=== PATIENT | male | born 1965 | race Caucasian/White ===

== ENCOUNTER 2020-01-27 16:26 | Emergency (ER) | payer SELFPAY ==
--- NOTE | ~2020-01-27 | XR_ITS ---
EXAMINATION: XR chest 2V DATE: 01/27/2020 17:16 INDICATION: Cough and fever TECHNIQUE: PA and lateral views of the chest are obtained. COMPARISON: None available FINDINGS: There is minimal airspace opacity of the right lower lobe. There is no pleural effusion or pneumothorax. The cardiomediastinal silhouette is normal. There is mild thoracic spondylosis. A heale d left rib fracture is noted. IMPRESSION: 1. Minimal airspace opacity of the right lower lobe which could be infectious or inflammatory. Recomm end followup radiographs in 10-14 days after appropriate therapy to evaluate for improvement/resoluti on. Reviewed, dictated and finalized at location A. IMPRESSION: 1. Minimal airspace opacity of the right lower lobe which could be infectious o r inflammatory. Recommend followup radiographs in 10-14 days after appropriate therapy to evaluate for improvement/resolution.
[2020-01-27 16:31] VITALS: BP 146/79; PULSE 100; RESP 24; TEMP 38.4; O2SAT 97
--- NOTE | 2020-01-27 17:07 | ED.GENADULT ---
HPI - General Adult General Chief complaint: Upper Respiratory Infection Stated complaint: cough/congestion History of Present Illness HPI narrative: Patient is a 54-year-old morbidly obese male presents to the urgent care via POV for evaluation of flulike symptoms that began approximately 4 days ago. He reports nonproductive cough, shortness of breath, chest congestion, subjective fever, nasal congestion, rhinorrhea, myalgias, and fatigue. Symptoms better with OTC decongestants. Symptoms worsen with too much walking . Patient does not have a PCP. Last seen by Dr. Perea years and years ago . Patient denies history of major medical illnesses. Patient denies known exposure to sick contacts. He states when he travels frequently but when he does travel he only travels within the [facility]. Denies history of vaping, COPD, bronchitis, asthma, and pneumonia. Denies current/past tobacco use. Pertinent negatives: sweats, chills, change in appetite, skin color changes, headache, dizziness, lymphadenopathy, sinus problems, ear pain/drainage, chest pain, heart murmurs, heart palpitations, wheezing, cyanosis, hemoptysis, hoarseness, orthopnea, pleuritic pain, nausea, vomiting, diarrhea, and myalgias. Related Data Allergies Allergy/AdvReac Type Severity Reaction Status Date / Time steroid Allergy Rash Uncoded 01/27/20 16:41 Review of Systems Review of Systems: All systems reviewed & are unremarkable except as noted in HPI and below PMFSH Comments I have reviewed and agree with the patient's past medical, surgical, social, and family hx as documented by the RN. There is no relevant family history pertinent to the presenting complaint. Exam Narrative: Exam Narrative: GENERAL: Well-appearing, well-nourished, and in no acute distress. Patient is unkept. HEAD: Normocephalic, atraumatic. No sinus tenderness or facial swelling appreciated. EYES: PERRLA and EOMI. No evidence of erythema, swelling, or drainage. ENT: Bilateral external ears and ear canals normal. Bilateral TMs are normal.No TM perforation. Nares clear, no rhinorrhea or epistaxis. Bilateral turbinates without erythema/ swelling. Mucous membranes moist and pink. Uvula is midline without erythema and swelling. No evidence of petechial rash, cobblestoning, lesions, ulcers, erythema, swelling, exudates, peritonsillar abscess, tenting, or drooling. Breath odor and voice normal. NECK: Supple. No Lymphadenopathy or nuchal rigidity appreciated. CHEST: Bilateral lung gray are clear to auscultation. Mild SOB. No respiratory distress. Mild wet cough appreciated upon examination. No evidence of pleuritic cp upon examination. HEART: Regular rate and rhythm. No murmur, gallop, or rub heard. EXTREMITIES: Normal range of motion. No edema. SKIN: Warm, dry, no rash. NEURO: No focal deficits. Alert and oriented x3. Course Course Emergency Course: SOB vastly improved post duo neb treatment. Vital Signs Vital signs: Vital Signs Temperature 101.1 F H 01/27/20 16:31 Pulse Rate 100 01/27/20 16:31 Respiratory Rate 24 H 01/27/20 16:31 Blood Pressure 146/79 H 01/27/20 16:31 Pulse Oximetry 97 01/27/20 16:31 Temperature 101.1 F H 01/27/20 16:31 Pulse Rate 100 01/27/20 16:31 Respiratory Rate 24 H 01/27/20 16:31 Blood Pressure 146/79 H 01/27/20 16:31 Pulse Oximetry 97 01/27/20 16:31 Medical Decision Making Medical Records Medical records reviewed: Yes I reviewed the patient's medical records. Vital Signs Vital Signs: Vital Signs Temperature 101.1 F H 01/27/20 16:31 Pulse Rate 100 01/27/20 16:31 Respiratory Rate 24 H 01/27/20 16:31 Blood Pressure 146/79 H 01/27/20 16:31 Pulse Oximetry 97 01/27/20 16:31 Temperature 101.1 F H 01/27/20 16:31 Pulse Rate 100 01/27/20 16:31 Respiratory Rate 24 H 01/27/20 16:31 Blood Pressure 146/79 H 01/27/20 16:31 Pulse Oximetry 97 01/27/20 16:31 Lab Data Lab results re
[2020-01-27 17:30] VITALS: PULSE 100; RESP 24; O2SAT 97
[2020-01-27 17:58] VITALS: PULSE 98; RESP 24; O2SAT 98
== END 2020-01-27 18:05 | disposition home or self-care (01) ==
PROVIDERS: Emergency Provider Nurse Practitioner Family
DX: R05 Cough (principal); R06.02 Shortness of breath
CPT/HCPCS: 71046; 94640; 99213; G0463

== ENCOUNTER 2020-07-14 08:29 | Observation (INO) | payer SELFPAY ==
[2020-07-14] VITALS (10 sets, daily range): BP systolic 124–193; BP diastolic 66–102; PULSE 75–102; RESP 16–26; TEMP 36.2–36.8; O2SAT 96–100; BMI 43.3
--- NOTE | ~2020-07-14 | XR_ITS ---
EXAMINATION: XR chest 2V DATE: 07/14/2020 09:12 INDICATION: Left arm pain. Bilateral lower extremity weakness. TECHNIQUE: Frontal and lateral views of the chest were obtained. COMPARISON: Chest 2 views 01/27/2020, chest CT 11/24/2011 FINDINGS: The chest demonstrates clear lungs without pneumonia, pleural effusion, or pneumothorax. Th e heart size is normal. IMPRESSION: 1. No acute cardiopulmonary disease. Reviewed, dictated and finalized at location A.
--- NOTE | ~2020-07-14 | CT_ITS ---
EXAMINATION: CT brain wo con DATE: 07/14/2020 10:21 INDICATION: Arm and leg weakness post fall one week prior. TECHNIQUE: Computed tomography (CT) of the head was performed without intravenous contrast. Sagittal and coronal reconstructions were performed. The mA was adjusted according to patient size. Iterative reconstruction technique was employed. The dose-length product was 681.00 mGy-cm. COMPARISON: None FINDINGS: No fracture. No acute intracranial hemorrhage, acute infarction or abnormal extra axial fluid collect ion. Ventricles are normal and symmetric. No mass/mass effect. The orbits, paranasal sinuses and mast oid air cells are normal. IMPRESSION: 1. No fracture or acute intracranial process. Reviewed, dictated and finalized at location B.
--- NOTE | ~2020-07-14 | MR_ITS ---
EXAMINATION: MR cervical spine wo con DATE: 07/15/2020 13:50 INDICATION: Left upper extremity weakness. TECHNIQUE: Magnetic resonance imaging (MRI) of the cervical spine was performed without intravenous c ontrast. Sequences included sagittal T2-weighted FSE, sagittal STIR FSE, sagittal T1-weighted FSE, ax ial MERGE, and axial T2-weighted FSE. COMPARISON: Cervical spine radiographs 11/07/2009 FINDINGS: There is kyphosis of upper cervical spine. There is 3 degrees levocurvature of cervical spi ne. Vertebral body heights are normal. There is mildly decreased disc height at C4-C5, C5-C6, and C6- C7. The spinal cord signal intensity is normal. The following disc levels are specifically discussed: C2-C3: The disc does not extend beyond the endplate margin. There is no uncovertebral joint osteoarth ritis. There is severe right facet joint osteoarthritis. There is ankylosis of left facet joint with moderate hypertrophy. There is no neural foraminal stenosis. There is no central canal stenosis. C3-C4: The disc is bulging. There is mild left uncovertebral joint osteoarthritis. There is moderate right and mild right facet joint osteoarthritis. There is mild bilateral neural foraminal stenosis. T here is mild central canal stenosis with ventral indentation of spinal cord. C4-C5: The disc is bulging. There is mild bilateral uncovertebral joint osteoarthritis. There is mild left facet joint osteoarthritis. There is mild bilateral neural foraminal stenosis. There is mild ce ntral canal stenosis with ventral indentation of spinal cord. C5-C6: The disc is bulging. There is moderate bilateral uncovertebral joint osteoarthritis. There is no facet joint osteoarthritis. There is mild bilateral neural foraminal stenosis. There is mild centr al canal stenosis. C6-C7: The disc is bulging. There is moderate right and severe left uncovertebral joint osteoarthriti s. There is no facet joint osteoarthritis. There is mild right and moderate left neural foraminal stacie nosis. There is mild central canal stenosis. C7-T1: The disc does not extend beyond the endplate margin. There is no uncovertebral joint osteoarth ritis. There is moderate bilateral facet joint osteoarthritis. There is mild bilateral neural foramin al stenosis. There is no central canal stenosis. IMPRESSION: 1. Moderate cervical spondylosis including moderate left neural foraminal stenosis at C6-C7. Reviewed, dictated and finalized at location A. IMPRESSION: 1. Moderate cervical spondylosis including moderate left neural foraminal steno sis at C6-C7.
--- NOTE | ~2020-07-14 | MR_ITS ---
EXAMINATION: MR brain/brain stem wo/w con DATE: 07/15/2020 13:50 INDICATION: Left upper extremity weakness. TECHNIQUE: Magnetic resonance imaging (MRI) of the brain and brainstem was performed without and with 20 mL MultiHance intravenous contrast. Sequences included sagittal and axial T1-weighted FSE, axial diffusion-weighted FS EPI, axial T2*-weighted GRE, axial T2-weighted FLAIR Propeller, and axial T2-we ighted Propeller. Postcontrast sequences included axial and coronal T1-weighted FSE. Apparent diffusi on coefficient (ADC) maps were created. COMPARISON: Head CT 07/14/2020 FINDINGS: There is no intracranial hemorrhage, acute infarction, or abnormal intracranial mass lesion . The ventricles are normal in size. The orbits are normal. There is mild mucosal thickening in right maxillary sinus. The mastoid air cells are normal. IMPRESSION: 1. Normal brain. Reviewed, dictated and finalized at location A. IMPRESSION: 1. Normal brain.
--- NOTE | ~2020-07-14 | MR_ITS ---
EXAMINATION: MR shoulder LT wo con DATE: 07/15/2020 13:50 INDICATION: Limited left shoulder motion. Weakness. TECHNIQUE: Magnetic resonance imaging (MRI) of the left shoulder was performed without intravenous co ntrast. Sequences included axial PD-weighted FS FSE, coronal oblique PD-weighted FS FSE, coronal obli que T2-weighted FS FSE, sagittal PD-weighted FS FSE, and sagittal T1-weighted SE. COMPARISON: None. FINDINGS: Coracoacromial arch: The acromion undersurface is curved in morphology (type II). The coracoacromial ligament is normal. M oderate acromioclavicular osteoarthritis with prominent subarticular cystic change at the anterior as pect of the lateral head of the clavicle. Rotator cuff: The supraspinatus, infraspinatus and teres minor tendons are normal. The subscapularis tendon is norm al. There is severe fatty atrophy of the teres minor muscle belly. No evident abnormal masses, fluid collections or other impinging lesions identified at the quadrilateral space along the course of the axillary nerve. The remaining musculature of the shoulder girdle appears normal. Biceps tendon, glenoid labrum and glenohumeral cartilage: Long head of the biceps tendon is normal. Linear increased signal extending peripherally into the sub stance of the superior glenoid labrum consistent with small SLAP tear at the 11:30-12:30 position. Gl enohumeral cartilage is normal. Fluid: Physiologic amount of fluid in the glenohumeral joint and biceps tendon sheath. No loose osteochondra l bodies. No abnormally increased fluid signal in the subacromial/subdeltoid bursa to suggest bursiti s. Bones: Bone alignment is normal. No fracture or pathologic marrow replacing process. IMPRESSION: 1. Small SLAP tear at the superior glenoid labrum. 2. Moderate acromioclavicular osteoarthritis. 3. Nonspecific severe fatty atrophy of the left teres minor muscle belly which is of indeterminate et iology with no evident impinging lesions along the course of the axillary nerve. Reviewed, dictated and finalized at location B. IMPRESSION: 1. Small SLAP tear at the superior glenoid labrum. 2. Moderate acromioclavicular osteoarthritis. 3. Nonspecific severe fatty atrophy of the left teres minor muscle belly which is of indeterminate etiology with no evident impinging lesions along the course of the axillary nerve.
--- NOTE | 2020-07-14 08:40 | ECG_ITS ---
Measurements Intervals [place] Rate: 94 P: 42 SD: 169 QRS: 30 QRSD: 88 T: 66 QT: 328 QTc: 411 Interpretive Statements SINUS RHYTHM BORDERLINE T WAVE ABNORMALITY- HIGH LATERAL LEADS BASELINE ARTIFACT- I, II, AVR, AVL, AVF, V1-V6 BORDERLINE ECG Electronically Signed On 07-14-2020 9:35:04 CDT by Gustavo Kc D.O.
--- NOTE | 2020-07-14 08:44 | PC.NURSE ---
pt informed of need for ua, given urinal to attempt sample.
[2020-07-14 09:04] LABS: Basophils Absolute Auto 0.1 K/mm3 (0.0-0.1); Basophils Percent Auto 0.7 % (0.2-1.2); Eosinophils Absolute Auto 0.3 K/mm3 (0-0.3); Eosinophils Percent Auto 2.8 % (0-4.4); Hematocrit 46.7 % (42.0-52.0); Hemoglobin 15.8 g/dL (14.0-18.0); Immature Granulocyte Absolute 0.05 K/mm3 (0.00-0.031); Immature Granulocyte Percent A 0.4 % (0-0.5); Lymphocytes Absolute Auto 2.98 K/mm3 (0.9-3.2); Mean Corpuscular HGB Conc 33.8 g/dl (32-36); Mean Corpuscular Hemoglobin 30.7 pg (26-34); Mean Corpuscular Volume 90.9 fl (80-100); Mean Platelet Volume 8.5 fl (7.4-10.4); Monocytes Absolute Auto 1.2 K/mm3 (0.1-0.6); Monocytes Percent Auto 10.8 % (2.6-8.5); Neutrophils Absolute Auto 6.8 K/mm3 (1.3-6.7); Neutrophils Percent Auto 59.3 % (45.5-73.1); Platelet Count Result 448 k/mm3 (150-375); Red Blood Count 5.14 M/mm3 (4.6-6.20); Red Cell Distribution Width 12.8 % (11.5-14.5); White Blood Count 11.5 K/mm3 (4.5-10.0)
--- NOTE | 2020-07-14 09:07 | PC.NURSE ---
pt to ct at this time in stretcher.
[2020-07-14 09:10] LABS: Alanine Aminotransferase 38 U/L (4-50); Albumin Level 4.5 g/dL (3.5-5.1); Alkaline Phosphatase 102 U/L (38-126); Anion Gap 9 mmol/L (8-16); Aspartate Amino Transferase 37 U/L (17-59); Bilirubin,Total 0.6 mg/dL (0.2-1.3); Blood Urea Nitrogen 14 mg/dL (9-20); Calcium 9.6 mg/dL (8.4-10.2); Carbon Dioxide 27 mmol/L (22-30); Chloride 102 mmol/L (98-107); Estimated CRCL calculation 123 ml/min; Estimated Glomerular Filt Rate > 60; Glucose 120 mg/dL (75-110); Sodium 138 mmol/L (137-145)
[2020-07-14 09:10] LABS: Add Urine Microscopic? NO; Appearance Urine Clear (Clear); Bilirubin Urine Negative (Negative); Blood Urine Negative (Negative); Color Urine Yellow (Yellow); Glucose Urine UA Negative (Negative); Ketones Urine Negative (Negative); Leukocyte Esterase Ur Negative LEU/UL (Negative); Nitrate Urine Negative (Negative); Protein Urine Negative (Negative); Urobilinogen Urine Negative mg/dL (<2.0)
[2020-07-14 09:27] LABS: INR 0.9; Prothrombin Time 12.1 Seconds (11.1-14.7)
[2020-07-14 09:28] LABS: Partial Thromboplastin Time 26.3 SECONDS (22.3-36.8)
[2020-07-14 09:55] LABS: Troponin I < 0.012 ng/mL (0.000-0.034)
--- NOTE | 2020-07-14 10:39 | PC.NURSE ---
pt back from xray, wound noted to L scapula, draining purulent and bloody fluid. toña farah.
--- NOTE | 2020-07-14 11:16 | ED.GENADULT ---
HPI - General Adult General Chief complaint: Weakness Stated complaint: fatigue/left arm weakness onset 2.5 months Time Seen by Provider: 07/14/20 09:08 Source: patient Mode of arrival: ambulatory Limitations: no limitations History of Present Illness HPI narrative: 54 years old white male, morbidly obese presents with weakness of the left upper extremity 3 to 4 weeks ago. Patient is right-handed. Patient denies any pain in the left upper extremity. Patient also denies any fever, chills, nausea, vomiting, diarrhea, constipation, headache or any other focal weakness. Patient also denies any neck pain or recent trauma.. Patient does not have family physician Related Data Allergies Allergy/AdvReac Type Severity Reaction Status Date / Time steroid Allergy Rash Uncoded 01/27/20 16:41 Review of Systems Review of Systems: Narrative: CONSTITUTIONAL: Denies fever, chills, or sweats. EYES: Denies visual changes, redness, or discharge. ENT: Denies rhinorrhea, congestion, sore throat, or otalgia. CARDIOVASCULAR: Denies chest pain, palpitations, or edema. RESPIRATORY: Denies cough or dyspnea. GASTROINTESTINAL: Denies abdominal pain, nausea, vomiting, or diarrhea. GENITOURINARY: Denies dysuria or hematuria. SKIN: Denies rash or itching. MUSCULOSKELETAL: Denies back pain, joint pain, or myalgia. NEUROLOGIC: Denies headache, numbness,. Complaining of weakness left upper extremity PSYCHIATRIC: Denies anxiety or depression. PMFSH Social History Social History (Updated 07/14/20 @ 11:19 by Zenaida Clemons MD) Smoking status: Never smoker Second hand tobacco smoke exposure: No Alcohol intake: never Gender identity (if verbalized by the patient): Male Exam Narrative: Exam Narrative: General appearance: Well-developed, well-nourished, morbidly obese, not in any pain or distress Skin: Normal color, left upper back showed large abscess leaking purulent discharge. Diffusely tender, surrounded by erythema Head: Normocephalic, nontraumatic Eyes: Clear conjunctiva ENT: Oropharynx normal, ears normal, nose normal Neck: Supple, nontender Chest and respiratory: Airway patent, no respiratory distress, no accessory muscle use Heart: Regular rate/rhythm Abdomen: Soft, nontender, no organomegaly, quiet bowel sounds Vascular: Normal peripheral pulses, normal capillary refill. Musculoskeletal: Limited range of motion of left upper extremity because of weakness Neurologic: Alert and oriented ?3, weakness left upper extremity 3 out of 5 Course Course Emergency Course: Stable Consultations Consultation #1: Dr. Tirado Admit patient for further evaluation Date: 07/14/20 Time: 12:49 Consultation #2: Dr. Martino Date: 07/14/20 Time: 12:51 Vital Signs Vital signs: Vital Signs Temperature 36.3 C L 07/14/20 08:37 Pulse Rate 92 07/14/20 08:37 Respiratory Rate 18 07/14/20 08:37 Blood Pressure 193/102 H 07/14/20 08:37 Pulse Oximetry 99 07/14/20 08:37 Temperature 36.3 C L 07/14/20 08:37 Pulse Rate 91 07/14/20 12:32 Respiratory Rate 26 H 07/14/20 12:32 Blood Pressure 147/76 H 07/14/20 12:32 Pulse Oximetry 99 07/14/20 12:32 Procedures Abscess I/D back: Date of Incision: 07/14/20 Time of Incision: 12:47 Side (if applicable): left Local Anesthetic: lidocaine 1% Amount of anesthesia used (mL): 6 Technique: incised with #11 blade Amount of fluid expressed (mL): 40 Irrigation: Yes Packing used?: iodoform I&D Results: Pus and Blood Complications: pain and bleeding Abcess I&D Additional Comments: Culture was obtained, patient tolerated the procedure well Medical De
--- NOTE | 2020-07-14 12:31 | PC.NURSE ---
toña levy at bedside for incision and drain.
--- NOTE | 2020-07-14 13:57 | PC.NURSE ---
PER STAFF [facility], PT NOT TO BE SENT TO THE FLOOR UNTIL THEY CONTACT US DUE TO DOWN TIME.
--- NOTE | 2020-07-14 14:25 | ADMGEN ---
This patient, Luis A Crow, was admitted to 2 Medical Room 255-. Patient/family oriented to hospital policies and general routines including ID bracelet, bed and alarms, visiting hours, pain management, procedures, bathroom and other care routines, personal items, smoking policy, room service/diet, and visiting hours. Valuables list has been completed. Information on how to activate the Rapid Response Team has been discussed. Patient/Family are encouraged to report perceived risks to care and to ask questions if they do not understand what they are told or what they should do.
--- NOTE | 2020-07-14 19:00 | PM.IMHP ---
H&P: HPI History of Present Illness Date/Time: 07/14/20 19:00 Chief complaint: Left upper extremity weakness/l upper back abscess Narrative: Luis A Crow is a 54 year old male who tells me that he has been having problems with his left shoulder for many months. The patient delivers papers on a paper route. He throws the papers with his left arm and stated that he gradually noticed that his left arm was gradually getting weaker. His no complaints of discomfort but has limited motion to the left arm he can only get his left arm to about 90?. He has not had any fall or injury to that left arm. He has not been to primary care doctor for follow-up treatment. The patient stated that he has had a left knee injury in the past and felt like he might have messed up his tendon or something in that left knee but he braced it for a few months that is getting better. He has also had problems with his right knee in the past were he had surgery on and had a splint on it. The patient has no slurred speech are left leg weakness. The patient stated that he cut a what a little bit because he has knee pain. No history of any strokes. Head CT was read as no fracture acute intracranial process. Chest x-ray no acute cardiopulmonary disease. Patient was also found to have a abscess to his left chest area just under his left axillary area. A incision and drainage was performed. Wound culture was sent. Date of service is 07/14/2020 Review of Systems Review of Systems: All systems reviewed & are unremarkable except as noted in HPI and below Constitutional: Constitutional: Reports as per HPI and Reports no additional constitutional complaints Eyes: Eyes: Reports as per HPI and Reports no additional eye complaints ENT: Reports system reviewed and no additional complaints, except as documented and Reports Normal hearing present Cardiovascular: Cardiovascular: Reports no additional cardiovascular complaints Respiratory: Respiratory: Reports no additional respiratory complaints and Reports no additional respiratory complaints Gastrointestinal: Gastrointestinal: Reports as per HPI and Reports no additional gastrointestinal complaints Musculoskeletal: Musculoskeletal: Reports no additional musculoskeletal complaints Integumentary/Breasts: Skin/Breast: Reports system reviewed and no additional complaints, except as docu and Reports as per HPI Neurologic: Reports system reviewed and no additional complaints, except as documented, Reports as per HPI and Reports Normal hearing present Psychiatric: Psychiatric: Reports no additional psychiatric complaints and Reports as per HPI Endocrine: Endocrine: Reports no additional endocrine complaints Hematologic/Lymphatic: Hematologic/Lymphatic: Reports no additional hematologic/lymphatic complaints Allergic/Immunologic: Allergic/Immunologic: Reports no additional allergic/immunologic complaints [facility] Surgical History Surgical History (Updated 07/14/20 @ 19:11 by Luz Messina NP) History of appendectomy S/P arthroscopic surgery of right knee Family History Family History Father BPH (benign prostatic hyperplasia) Lymph node cancer Hypercholesteremia Mother Diabetes mellitus Hip replacement planned Sibling Colon cancer Sibling No problems noted. Sibling No problems noted. Social History Social History (Updated 07/14/20 @ 19:12 by Luz Messina NP) Social History: the patient lives with his father. He has a paper I will that he does every day. The patient does not have a durable power district attorney for healthcare. The patient is single and has no children. He desires to be a full code. Patient denies ever using any tobacco products. No marijuana or illicit drugs. Smoking status: Never smoker Second hand tobacco smoke exposure: Yes Alcohol intake: never Substance use: never Living arrangements: [facility]
[2020-07-14] MEDS: ACETAMINOPHEN 325 MG TABLET 650 MG PO (23:04)
[2020-07-15 04:00] VITALS: BP 138/61; PULSE 79; RESP 20; TEMP 36.4; O2SAT 97
[2020-07-15 05:48] LABS: Basophils Percent Auto 0.6 % (0.2-1.2); Eosinophils Absolute Auto 0.3 K/mm3 (0-0.3); Eosinophils Percent Auto 4.2 % (0-4.4); Hematocrit 43.5 % (42.0-52.0); Hemoglobin 14.9 g/dL (14.0-18.0); Immature Granulocyte Absolute 0.02 K/mm3 (0.00-0.031); Immature Granulocyte Percent A 0.3 % (0-0.5); Lymphocytes Absolute Auto 1.99 K/mm3 (0.9-3.2); Lymphocytes Percent Auto 28.7 % (18.3-44.2); Mean Corpuscular HGB Conc 34.3 g/dl (32-36); Mean Corpuscular Volume 90.4 fl (80-100); Mean Platelet Volume 8.5 fl (7.4-10.4); Monocytes Absolute Auto 0.9 K/mm3 (0.1-0.6); Monocytes Percent Auto 13.1 % (2.6-8.5); Neutrophils Absolute Auto 3.7 K/mm3 (1.3-6.7); Neutrophils Percent Auto 53.1 % (45.5-73.1); Platelet Count Result 336 k/mm3 (150-375); Red Blood Count 4.81 M/mm3 (4.6-6.20); Red Cell Distribution Width 12.7 % (11.5-14.5); White Blood Count 6.9 K/mm3 (4.5-10.0)
[2020-07-15 06:07] LABS: Alanine Aminotransferase 32 U/L (4-50); Albumin Level 3.8 g/dL (3.5-5.1); Alkaline Phosphatase 81 U/L (38-126); Anion Gap 7 mmol/L (8-16); Aspartate Amino Transferase 32 U/L (17-59); Bilirubin,Total 0.5 mg/dL (0.2-1.3); Blood Urea Nitrogen 13 mg/dL (9-20); Carbon Dioxide 27 mmol/L (22-30); Chloride 102 mmol/L (98-107); Estimated CRCL calculation 137 ml/min; Estimated Glomerular Filt Rate > 60; Glucose 119 mg/dL (75-110); Potassium 4.1 mmol/L (3.4-5.0); Sodium 136 mmol/L (137-145)
--- NOTE | 2020-07-15 08:00 | PC.NURSE ---
Patient states he is fidgety and will have a hard time lying still in the MRI machine. Called Dr. Martino and discussed same. Orders received for IV Ativan x 1 prior to MRI today.
--- NOTE | 2020-07-15 08:07 | PM.CNGS ---
Assessment and Plan Assessment and plan (1) Abscess: Code(s): L02.91 - Cutaneous abscess, unspecified Status: Acute Assessment and Plan: okay to discharge today. Daily showers and dry gauze dressing to back wound. See me in 1-2 weeks in the office. No need for oral antibiotics. History of Present Illness Consult details Consult date: 07/15/20 Reason for consult: other ( Back abscess) Narrative: patient is a 54-year-old man who came to the emergency room for history of left upper extremity weakness. While there he was noted to have a back abscess which was incised and drained in the emergency room. I have been consulted for management of the abscess. Packing was placed in the emergency room. The incision and drainage was done yesterday. Preliminary report on the abscess shows polymicrobial infection. Review of Systems Review of Systems: All systems reviewed & are unremarkable except as noted in HPI and below Constitutional: Constitutional: Denies body ache(s), Denies chills and Denies fever(s) Comments: Patient thought he had scratched his back. Was not aware there was an infection there. Neurologic: Reports as per HPI and Reports Sensory deficit (Neuro) [facility] Surgical History Surgical History History of appendectomy S/P arthroscopic surgery of right knee Family History Family History Father BPH (benign prostatic hyperplasia) Lymph node cancer Hypercholesteremia Mother Diabetes mellitus Hip replacement planned Sibling Colon cancer Sibling No problems noted. Sibling No problems noted. Social History Social History Social History: the patient lives with his father. He has a paper I will that he does every day. The patient does not have a durable power attorney lawyer for healthcare. The patient is single and has no children. He desires to be a full code. Patient denies ever using any tobacco products. No marijuana or illicit drugs. Smoking status: Never smoker Second hand tobacco smoke exposure: Yes Alcohol intake: never Substance use: never Living arrangements: with family Occupation/Education: occupation Gender identity (if verbalized by the patient): Male Spiritual care concerns: No Meds Home Medications and Allergies Home Medications Medication Instructions Recorded Confirmed Type No Home Medications 07/14/20 07/14/20 History Allergies Allergy/AdvReac Type Severity Reaction Status Date / Time steroid Allergy Rash Uncoded 01/27/20 16:41 Vital Signs Vital Signs - 24 hr 07/14/20 08:37 07/14/20 08:41 07/14/20 09:23 Temperature 36.3 C L Pulse Rate 92 97 87 Respiratory Rate 18 26 H 26 H Blood Pressure 193/102 H 161/95 H 140/91 H Pulse Oximetry 99 98 96 07/14/20 10:00 07/14/20 11:01 07/14/20 11:24 Temperature Pulse Rate 86 83 83 Respiratory Rate 21 H 22 H 22 H Blood Pressure 126/72 124/76 124/76 Pulse Oximetry 97 97 99 07/14/20 12:32 07/14/20 13:56 07/14/20 14:30 Temperature 36.8 C Pulse Rate 91 75 80 Respiratory Rate 26 H 17 16 Blood Pressure 147/76 H 147/76 H 151/81 H Pulse Oximetry 99 100 98 07/14/20 20:00 07/15/20 04:00 Temperature 36.2 C L 36.4 C Pulse Rate 102 H 79 Respiratory Rate 18 20 Blood Pressure 136/66 138/61 Pulse Oximetry 96 97 Exam Const: General: comfortable, no acute distress, alert and awake Nutritional Appearance: obese Orientation/consciousness: patient oriented x3 Limitations: no limitations HENMT: Head: normocephalic and atraumatic Mouth: Yes Normal oral and palatal mucosa present Eyes: Conjunctivae: conjunctivae normal Pupils: Equal, round and reactive pupils present EOM: EOMs intact bilaterally Neck: Neck: normal visual inspection, no lymphadenopathy and nontender Resp: Effort & Ins
[2020-07-15] MEDS: ASPIRIN 81 MG CHEWABLE TABLET PO (10:26)
--- NOTE | 2020-07-15 11:05 | WPDNEURCNPN ---
Assessment and Plan Assessment and plan (1) LUE weakness: Code(s): R29.898 - Other symptoms and signs involving the musculoskeletal system Status: Acute (2) Abscess: Code(s): L02.91 - Cutaneous abscess, unspecified Status: Acute Additional Plan his back abscess was incised and drained in the emergency room for the follow-up Dr. 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 Has had left knee injury in the past along with the right knee as well where he has undergone surgery Review of Systems Review of Systems: All systems reviewed & are unremarkable except as noted in HPI and below PMFSH Surgical History Surgical History History of appendectomy S/P arthroscopic surgery of right knee Family History Family History Father BPH (benign prostatic hyperplasia) Lymph node cancer Hypercholesteremia Mother Diabetes mellitus Hip replacement planned Sibling Colon cancer Sibling No problems noted. Sibling No problems noted. Social History Social History Social History: the patient lives with his father. He has a paper I will that he does every day. The patient does not have a durable power deputy prosecuting attorney for healthcare. The patient is single and has no children. He desires to be a full code. Patient denies ever using any tobacco products. No marijuana or illicit drugs. Smoking status: Never smoker Second hand tobacco smoke exposure: Yes Alcohol intake: never Substance use: never Living arrangements: with family Occupation/Education: occupation Gender identity (if verbalized by the patient): Male Spiritual care concerns: No Meds Home Medications and Allergies Home Medications Medication Instructions Recorded Confirmed Type No Home Medications 07/14/20 07/14/20 History Allergies Allergy/AdvReac Type Severity Reaction Status Date / Time steroid Allergy Rash Uncoded 01/27/20 16:41 Vital Signs Vital Signs - 24 hr 07/14/20 11:24 07/14/20 12:32 07/14/20 13:56 Temperature Pulse Rate 83 91 75 Respiratory Rate 22 H 26 H 17 Blood Pressure 124/76 147/76 H 147/76 H Pulse Oximetry 99 99 100 07/14/20 14:30 07/14/20 20:00 07/15/20 04:00 Temperature 36.8 C 36.2 C L 36.4 C Pulse Rate 80 102 H 79 Respiratory Rate 16 18 20 Blood Pressure 151/81 H 136/66 138/61 Pulse Oximetry 98 96 97 Exam Narrative: Exam Narrative: examination revealed him to be awake alert cooperative in no obvious acute distress but interested in going to to home as soon as possible head normocephalic with no cranial bruit ear nose throat examination normal neck supple with no cervical bruit no thyromegaly no lymphadenopathy heart regular with no murmur lungs clear to auscultation with no evidence of rhonchi or crepitation normal bowel sounds with no organomegaly back in the spina pelvic exam is not reporting of non significant skin normal neurological he is awake alert oriented x3. His speech nor dysphasic no dysarthric not dysphonic. Pupils round regular feels the vision full extraocular most full face symmetrical tongue midline uvula midline motor examination reveals normal strength in both upper and lower extremities proximally and distally except did not difficulties in lifting the left upper extremity above the 90? mentally his normal with no evide
--- NOTE | 2020-07-15 12:00 | PC.NURSE ---
To MRI via wheelchair with transporter.
[2020-07-15 14:00] VITALS: BP 140/85; PULSE 86; RESP 16; TEMP 36.7; O2SAT 98
--- NOTE | 2020-07-15 16:04 | PM.DS ---
DS: Admitting Diagnosis Admitting Diagnosis Admitting Diagnosis: Left upper extremity weakness/l upper back abscess DS: Discharge Diagnosis Discharge Diagnosis (1) LUE weakness: Code(s): R29.898 - Other symptoms and signs involving the musculoskeletal system Status: Acute Assessment and Plan: the patient stated that this weakness came on over time. 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 He cannot lift his left arm greater than 90?. The ER physician felt that the patient needed to be admitted and worked up for stroke. However he does not have any weakness his left lower extremity. So will get a MRI of the neck and the left shoulder. This could possibly be a rotator cuff injury. (2) Abscess: Code(s): L02.91 - Cutaneous abscess, unspecified Status: Acute Assessment and Plan: Under left axillary area. The area was drain per ED physician and cultures were sent. I did start the patient on Ancef. I consulted surgery for further evaluation. There may not be any further need for any further treatment other than antibiotics and waiting for the cultures. DS: Summary Hospital Course Reason for hospitalization: Chief complaint: Left upper extremity weakness/l upper back abscess Narrative: Luis A Crow is a 54 year old male who tells me that he has been having problems with his left shoulder for many months. The patient delivers papers on a paper route. He throws the papers with his left arm and stated that he gradually noticed that his left arm was gradually getting weaker. His no complaints of discomfort but has limited motion to the left arm he can only get his left arm to about 90?. He has not had any fall or injury to that left arm. He has not been to primary care doctor for follow-up treatment. The patient stated that he has had a left knee injury in the past and felt like he might have messed up his tendon or something in that left knee but he braced it for a few months that is getting better. He has also had problems with his right knee in the past were he had surgery on and had a splint on it. The patient has no slurred speech are left leg weakness. The patient stated that he cut a what a little bit because he has knee pain. No history of any strokes. Head CT was read as no fracture acute intracranial process. Chest x-ray no acute cardiopulmonary disease. Patient was also found to have a abscess to his left chest area just under his left axillary area. A incision and drainage was performed. Wound culture was sent. Date of service is 07/14/2020 Hospital Course: the patient stated that this weakness came on over time. 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 He cannot lift his left arm greater than 90?. The ER physician felt that the patient needed to be admitted and worked up for stroke. However he does not have any weakness his left lower extremity. So will get a MRI of the neck and the left shoulder. This could possibly be a rotator cuff injury., patient had MRI of the brain which was negative for acute injury, patient had a MRI of the cervical spine showed spinal stenosis, patient had MRI of the shoulder showed Small SLAP tear at the superior glenoid labrum. patient was to be discharged home and will follow-up with orthopedics outpatient patient is clinically stable, patient was seen by surgery service evaluated abscess on the back, does not need further surgical intervention and does not need antibiotic can be discharged home follow-up as outpatient in the clinic Status at Discharge Functional status at discharge: independent ambulation Overall status at discharge: patient is back to baseline Time Spent with Patient Time attestation: Total time spent providing and/or coordinating discharge services: Patient was seen and examined at the time of the discharge Condition at discharge is stable Code status: Full code. Time spent preparing discharge summary, discharge medications, discussing discharge p
== END 2020-07-15 16:35 | disposition home or self-care (01) ==
LOC: ANHED 13:12 → ANH2MED 13:14
PROVIDERS: Nurse Practitioner; Admitting Provider Family Medicine; Emergency Provider Emergency Medicine; Visit Provider Family Medicine
DX: L02.412 Cutaneous abscess of left axilla (principal); M62.81 Muscle weakness (generalized); E66.01 Morbid (severe) obesity due to excess calories; Z68.41 Body mass index [BMI] 40.0-44.9, adult
CPT/HCPCS: 10061; 36415; 70450; 70553; 71046; 72141; 73221; 80053; 81003; 84484; 85025; 85610; 85730; 87070; 87205; 93005; 96365; 96366; 96375; 99285; A9270; A9577; G0378; G0379; J0690; J2060

== ENCOUNTER 2020-10-23 06:25 | Emergency (ER) | payer MEDICAID, SELFPAY ==
--- NOTE | ~2020-10-23 | XR_ITS ---
EXAMINATION: XR ankle LT min 3V DATE: 10/23/2020 07:34 INDICATION: Left ankle pain and swelling TECHNIQUE: Anteroposterior, oblique, mortise, and lateral views of the left ankle were obtained. COMPARISON: None. FINDINGS: Alignment is normal. No fracture. Mild osteoarthritis at the tibiotalar and calcaneocuboid articulat ions. No erosions or periosteal reaction. Small Achilles and plantar calcaneal spurs. Diffuse soft ti ssue swelling about the ankle. No evident ankle joint effusion. There is however suggestion of possib le talonavicular joint effusion. IMPRESSION: 1. 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 No acute osseous abnormality. Reviewed, dictated and finalized at location A. GER ASSET MANAGEMENT IMPRESSION: 1. 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 No acute osseous abnorma lity.
--- NOTE | ~2020-10-23 | US_ITS ---
EXAMINATION: US venous doppler [facility] DATE: 10/23/2020 08:05 INDICATION: Left lower limb swelling. TECHNIQUE: Grayscale ultrasound images without and with compression and Doppler ultrasound images of the bilateral lower extremity veins were obtained. COMPARISON: None. FINDINGS: The visualized portions of right common femoral vein, profunda (deep) femoral vein, femoral vein, pop liteal vein, peroneal veins, posterior tibial veins, and greater saphenous vein outflow are patent. The visualized portions of left common femoral vein, profunda femoral vein, femoral vein, popliteal v ein, peroneal veins, posterior tibial veins, and greater saphenous vein outflow are patent. IMPRESSION: 1. No deep venous thrombosis. Reviewed, dictated and finalized at location B. ATOLOGY SALES REPRESENTATIVE
[2020-10-23 06:23] VITALS: BP 155/81; PULSE 102; RESP 19; TEMP 36.8; O2SAT 96
--- NOTE | 2020-10-23 07:08 | ECG_ITS ---
Measurements Intervals [place] Rate: 86 P: 58 MT: 154 QRS: 45 QRSD: 94 T: 70 QT: 349 QTc: 418 Interpretive Statements SINUS RHYTHM NONSPECIFIC T-WAVE ABNORMALITY- INF/HIGH LAT LEADS BASELINE ARTIFACT- I, II, III, AVL, AVF, V3, V6 BORDERLINE ECG Electronically Signed On 10-23-2020 7:37:50 METAL WIRE COATING OPERATOR by Gustavo Kc D.O.
--- NOTE | 2020-10-23 07:11 | ED.GENADULT ---
HPI - General Adult General Chief complaint: Extremity Injury, Lower Stated complaint: L LOWER LEG PAIN Time Seen by Provider: 10/23/20 07:01 Source: RN notes reviewed History of Present Illness HPI narrative: Patient presents to emergency department from home for leg swelling. Patient states he has had swelling in the bilateral legs over the past 4 days. He states is worse on the left than the right. He states that he did fall approximately a week ago but does not believe he had injured himself at that time. He denies any fevers or chills chest pain shortness of breath abdominal pain or any other symptoms he does state he has some mild aching around the left ankle but denies any known trauma or injury he denies any history of CHF Related Data Allergies Allergy/AdvReac Type Severity Reaction Status Date / Time steroid Allergy Rash Uncoded 10/23/20 08:01 Review of Systems Review of Systems: Narrative: Gen.: Denies fevers or chills ENT: Denies congestion Respiratory: Denies shortness of breath or cough CV: Denies chest pain or palpitations GI: Denies abdominal pain nausea, emesis or diarrhea Musculoskeletal: Denies back pain or muscle pain or lower extremity edema Neuro: Denies numbness, tingling, weakness or focal weakness Skin: Denies rash Except as documented, all other systems reviewed and negative [facility] Surgical History Surgical History History of appendectomy S/P arthroscopic surgery of right knee Family History Family History Father BPH (benign prostatic hyperplasia) Lymph node cancer Hypercholesteremia Mother Diabetes mellitus Hip replacement planned Sibling Colon cancer Sibling No problems noted. Sibling No problems noted. Social History Social History Social History: the patient lives with his father. He has a paper I will that he does every day. The patient does not have a durable power banking attorney for healthcare. The patient is single and has no children. He desires to be a full code. Patient denies ever using any tobacco products. No marijuana or illicit drugs. Smoking status: Never smoker Second hand tobacco smoke exposure: Yes Alcohol intake: never Substance use: never Gender identity (if verbalized by the patient): Male Spiritual care concerns: No Exam Narrative: Exam Narrative: APPEARANCE: No acute distress, nontoxic, resting in bed EYES: EOMI HEENT: Normocephalic, atraumatic, OMM RESPIRATORY: No respiratory distress Clear to auscultation bilaterally with no rhonchi wheezing or rales. CARDIOVASCULAR: Regular rate and rhythm without murmurs rubs or gallops. ABDOMINAL: Obese soft, nontender, nondistended, no rebound or guarding MUSCULOSKELETAl: Moves all extremities. No clubbing, cyanosis 2+ edema the right lower extremity 3+ edema the left lower extremity Alfonoz dorsalis pedis pulse 2+ neurovascular intact NEURO: Awake and alert. Following commands, speech normal, no focal deficits SKIN:: Warm, dry. No rashes lesions or abrasions PSYCHIATRIC: Normal affect/mood, Course Course Emergency Course: Upon further discussion with the patient he states that they have been having to do work in his bedroom and his bed and that he has been sleeping upright in his car for the past several days. Discussed with patient dependent edema we discussed use of compression stockings and patient states he will try to sleep on his friend's couch Discussed with patient results of workup and diagnosis. Discussed need for follow-up with primary care, proper use of medication, and reasons to return to the emergency department. Patient understands and agrees to current treatment plan Vital Signs Vital signs: Vital Signs Temperature 98.3 F 10/23/20 06:23 Pulse Rate 102 H 10/23/20 06:23 Respiratory Rate 19 12
[2020-10-23 07:28] LABS: Basophils Percent Auto 0.4 % (0.2-1.2); Eosinophils Absolute Auto 0.3 K/mm3 (0-0.3); Eosinophils Percent Auto 2.8 % (0-4.4); Hematocrit 43.6 % (42.0-52.0); Hemoglobin 14.6 g/dL (14.0-18.0); Immature Granulocyte Absolute 0.04 K/mm3 (0.00-0.031); Immature Granulocyte Percent A 0.4 % (0-0.5); Lymphocytes Absolute Auto 1.37 K/mm3 (0.9-3.2); Lymphocytes Percent Auto 13.8 % (18.3-44.2); Mean Corpuscular HGB Conc 33.5 g/dl (32-36); Mean Corpuscular Hemoglobin 31.2 pg (26-34); Mean Corpuscular Volume 93.2 fl (80-100); Mean Platelet Volume 8.6 fl (7.4-10.4); Monocytes Absolute Auto 1.1 K/mm3 (0.1-0.6); Monocytes Percent Auto 10.8 % (2.6-8.5); Neutrophils Absolute Auto 7.1 K/mm3 (1.3-6.7); Neutrophils Percent Auto 71.8 % (45.5-73.1); Platelet Count Result 289 k/mm3 (150-375); Red Blood Count 4.68 M/mm3 (4.6-6.20); Red Cell Distribution Width 13.1 % (11.5-14.5); White Blood Count 9.9 K/mm3 (4.5-10.0)
[2020-10-23 07:41] LABS: Alanine Aminotransferase 35 U/L (4-50); Albumin Level 3.7 g/dL (3.5-5.1); Alkaline Phosphatase 84 U/L (38-126); Anion Gap 5 mmol/L (8-16); Aspartate Amino Transferase 36 U/L (17-59); Bilirubin,Total 0.5 mg/dL (0.2-1.3); Blood Urea Nitrogen 17 mg/dL (9-20); Calcium 9.4 mg/dL (8.4-10.2); Carbon Dioxide 34 mmol/L (22-30); Chloride 100 mmol/L (98-107); Estimated CRCL calculation 140 ml/min; Estimated Glomerular Filt Rate > 60; Glucose 131 mg/dL (75-110); Potassium 3.7 mmol/L (3.4-5.0); Sodium 139 mmol/L (137-145)
[2020-10-23 07:43] LABS: INR 0.9; Partial Thromboplastin Time 23.9 SECONDS (22.3-36.8); Prothrombin Time 12.9 Seconds (11.1-14.7)
[2020-10-23 07:54] LABS: NT Pro B Type Natriuretic Pept < 11 PG/ML (5-100); Troponin I < 0.012 ng/mL (0.000-0.034)
[2020-10-23 10:03] VITALS: BP 143/85; PULSE 85; RESP 18; O2SAT 95
== END 2020-10-23 10:06 | disposition home or self-care (01) ==
PROVIDERS: Emergency Provider Emergency Medicine
DX: R60.0 Localized edema (principal); M19.072 Primary osteoarthritis, left ankle and foot; R94.31 Abnormal electrocardiogram [ECG] [EKG]
CPT/HCPCS: 36415; 73610; 80053; 83880; 84484; 85025; 85610; 85730; 93005; 93970; 99284

== ENCOUNTER 2020-11-01 14:26 | Observation (INO) | payer MEDICAID, SELFPAY ==
[2020-11-01] VITALS (11 sets, daily range): BP systolic 134–187; BP diastolic 67–110; PULSE 94–111; RESP 20–36; TEMP 36.8–36.9; O2SAT 95–98; BMI 42.6; BMI 42.7
--- NOTE | ~2020-11-01 | CT_ITS ---
EXAMINATION: CTA chest PE protocol EXAM DATE: 11/01/2020 19:01 INDICATION: Shortness of breath. TECHNIQUE: Spiral CTA of the chest (pulmonary arteries) was performed with 100 cc Omnipaque 350 intr avenous contrast injection. Images were acquired during the pulmonary arterial phase. Coronal maxi mum intensity projection 3D-reconstructions were created by the technologist on dedicated workstation . Axial, coronal and sagittal reformatted images were reviewed. The dose-length product (DLP) for t his examination was 923.69 mGy-cm. The exposure was tailored according to patient size (auto mA exp osure control), and iterative reconstruction (ASIR) was used as additional dose reduction technique. There is no prior study for comparison. FINDINGS: The main, central pulmonary arteries are dilated which can indicate elevated pulmonary ashley rial pressure, pulmonary arterial hypertension. There are no pulmonary emboli in the 1st or 2nd orde r (central and main) pulmonary arteries. There is loss of attenuation in the segmental pulmonary ashley farrukh due to respiratory motion, more distal pulmonary arteries not well evaluated. No thoracic aort ic dissection. Linear right lower lobe subsegmental atelectasis. The lungs are otherwise clear. Th ere are no pleural or pericardial effusions. Tracheobronchial tree is patent. There is no mediast inal, hilar or axillary lymphadenopathy. There is no pneumothorax. Heart normal in size. No lazaro dence of coronary arterial calcification. Upper abdomen is unremarkable. There is thoracic spondyl osis without osteoblastic or osteolytic lesions identified. IMPRESSION: 1. No central pulmonary emboli. Can't confidently evaluate interlobar, segmental pulmonary arteries. Consider attempting perfusion scan. 2. Pulmonary arterial hypertension. Reviewed, dictated and finalized at location A. TUTOR IMPRESSION: 1. No central pulmonary emboli. Can't confidently evaluate interlobar, segment al pulmonary arteries. Consider attempting perfusion scan. 2. Pulmonary arterial hypertension.
--- NOTE | ~2020-11-01 | XR_ITS ---
EXAMINATION: XR chest 1V portable EXAM DATE: 11/01/2020 15:06 INDICATION: Weakness. TECHNIQUE: Portable AP frontal chest x-ray was obtained. Comparison is made to prior examination from 07/14/2020. FINDINGS: Some underpenetration of this portable exam. No confluent consolidation, pneumothorax or pl eural effusion suspected. The cardiomediastinal silhouette is prominent but magnified on this AP tech nique. There are no osseous abnormalities identified. IMPRESSION: Some limitations but no confluent consolidation. Reviewed, dictated and finalized at location A. OL ADMISSIONS REPRESENTATIVE
--- NOTE | ~2020-11-01 | XR_ITS ---
EXAMINATION: XR foot LT min 3V DATE: 11/03/2020 12:39 INDICATION: Left foot pain. TECHNIQUE: 4 views of left foot were obtained. COMPARISON: None. FINDINGS: Bone alignment is normal. No fracture. There is mild osteoarthritis of talonavicular joint and some of the interphalangeal joints. There are enthesophytes at the posterior and plantar aspects of calcaneal tuberosity. IMPRESSION: 1. Mild polyarticular osteoarthritis. Reviewed, dictated and finalized at location A. EM DEVELOPMENT ENGINEER
--- NOTE | ~2020-11-01 | XR_ITS ---
EXAMINATION: XR ankle LT min 3V DATE: 11/03/2020 12:38 INDICATION: Left ankle pain and swelling. TECHNIQUE: 4 views of left ankle were obtained. COMPARISON: None. FINDINGS: Bone alignment is normal. No fracture. There is an osteochondral lesion of medial talar dom e. There is mild osteoarthritis of talonavicular joint. There are enthesophytes at the posterior and plantar aspects of calcaneal tuberosity. Ankle soft tissue swelling is noted. IMPRESSION: 1. Polyarticular osteoarthritis. Reviewed, dictated and finalized at location A. ETOLOGY PROFESSOR
--- NOTE | 2020-11-01 14:28 | ECG_ITS ---
Measurements Intervals [place] Rate: 110 P: 50 NE: 149 QRS: 31 QRSD: 108 T: 60 QT: 386 QTc: 524 Interpretive Statements SINUS TACHYCARDIA EARLY PRECORDIAL R/S TRANSITION BORDERLINE ST-T WAVE ABNORMALITY- DIFFUSE LEADS BASELINE ARTIFACT- I, II, III, AVR, AVL, AVF, V1 ABNORMAL ECG Electronically Signed On 11-01-2020 15:32:50 TURBINE MECHANIC by Gustavo Kc D.O.
--- NOTE | 2020-11-01 14:46 | ED.GENADULT ---
HPI - General Adult General Chief complaint: Weakness Stated complaint: weakness Time Seen by Provider: 11/01/20 14:35 Source: patient History of Present Illness HPI narrative: Patient is a 54 y/o male complaining of severe generalized weakness for several months. He states that he is living in a truck for last several weeks. He has trouble getting up walking due to weakness. There is no alleviating or exacerbating factor. He has no chest pain or SOB. He has chronic leg swelling. Related Data Allergies Allergy/AdvReac Type Severity Reaction Status Date / Time steroid Allergy Rash Uncoded 11/01/20 14:29 Review of Systems Constitutional: Constitutional: Denies chills, Denies fever(s), Denies headache(s) and Reports weakness Eyes: Eyes: Denies blurry vision ENT: Denies headache(s) and Denies neck pain Cardiovascular: Cardiovascular: Denies chest pain, Reports leg edema and Reports dyspnea Respiratory: Respiratory: Denies cough and Reports dyspnea Gastrointestinal: Gastrointestinal: Denies abdominal pain, Denies diarrhea, Denies nausea and Denies vomiting Genitourinary: Genitourinary: Denies hematuria and Denies dysuria Musculoskeletal: Musculoskeletal: Denies back pain and Denies neck pain Neurologic: Denies headache(s) and Reports weakness PMFSH Surgical History Surgical History History of appendectomy S/P arthroscopic surgery of right knee Family History Family History Father BPH (benign prostatic hyperplasia) Lymph node cancer Hypercholesteremia Mother Diabetes mellitus Hip replacement planned Sibling Colon cancer Sibling No problems noted. Sibling No problems noted. Social History Social History Social History: the patient lives with his father. He has a paper I will that he does every day. The patient does not have a durable power ip technology transactions attorney for healthcare. The patient is single and has no children. He desires to be a full code. Patient denies ever using any tobacco products. No marijuana or illicit drugs. Smoking status: Never smoker Second hand tobacco smoke exposure: Yes Alcohol intake: never Substance use: never Gender identity (if verbalized by the patient): Male Spiritual care concerns: No Course Consultations Consultation #1: Discussed with CIVIL PREPAREDNESS OFFICER Luz, who agrees to admit. Date: 11/01/20 Time: 16:42 Vital Signs Vital signs: Vital Signs Temperature 36.8 C 11/01/20 14:23 Pulse Rate 110 H 11/01/20 14:23 Respiratory Rate 36 H 11/01/20 14:23 Blood Pressure 186/87 H 11/01/20 14:23 Pulse Oximetry 98 11/01/20 14:23 Temperature 36.8 C 11/01/20 14:23 Pulse Rate 100 11/01/20 16:34 Respiratory Rate 30 H 11/01/20 16:34 Blood Pressure 183/74 H 11/01/20 16:34 Pulse Oximetry 98 11/01/20 16:34 Medical Decision Making Vital Signs Vital Signs: Vital Signs Temperature 36.8 C 11/01/20 14:23 Pulse Rate 110 H 11/01/20 14:23 Respiratory Rate 36 H 11/01/20 14:23 Blood Pressure 186/87 H 11/01/20 14:23 Pulse Oximetry 98 11/01/20 14:23 Temperature 36.8 C 11/01/20 14:23 Pulse Rate 100 11/01/20 16:34 Respiratory Rate 30 H 11/01/20 16:34 Blood Pressure 183/74 H 11/01/20 16:34 Pulse Oximetry 98 11/01/20 16:34 Lab Data Result diagrams: 11/01/20 14:35 11/01/20 14:35 Labs: Lab Results 11/01/20 11/01/20 11/01/20 Range/Units 14:35 14:35 15:04 WBC 11.4 H (4.5-10.0) K/mm3 RBC 4.64 (4.6-6.20) M/mm3 Hgb 14.2 (14.0-18.0) g/dL Hct 42.7 (42.0-52.0) % MCV 92.0 (80-100) fl MCH 30.6 (26-34) pg MCHC 33.3 (32-36) g/dl RDW 12.9 (11.5-14.5) % Plt Count 443 H D (150-375) k/mm3 MPV 8.5 (7.4-10.4) fl Immature Gran % (Auto) 0.5 (0-0.5) % Neut % (Auto) 79.2 H (4
[2020-11-01 14:50] LABS: Basophils Absolute Auto 0.1 K/mm3 (0.0-0.1); Basophils Percent Auto 0.5 % (0.2-1.2); Eosinophils Absolute Auto 0.3 K/mm3 (0-0.3); Eosinophils Percent Auto 2.2 % (0-4.4); Hematocrit 42.7 % (42.0-52.0); Hemoglobin 14.2 g/dL (14.0-18.0); Immature Granulocyte Absolute 0.06 K/mm3 (0.00-0.031); Immature Granulocyte Percent A 0.5 % (0-0.5); Lymphocytes Absolute Auto 1.25 K/mm3 (0.9-3.2); Mean Corpuscular HGB Conc 33.3 g/dl (32-36); Mean Corpuscular Hemoglobin 30.6 pg (26-34); Mean Platelet Volume 8.5 fl (7.4-10.4); Monocytes Absolute Auto 0.8 K/mm3 (0.1-0.6); Monocytes Percent Auto 6.6 % (2.6-8.5); Neutrophils Percent Auto 79.2 % (45.5-73.1); Platelet Count Result 443 k/mm3 (150-375); Red Blood Count 4.64 M/mm3 (4.6-6.20); Red Cell Distribution Width 12.9 % (11.5-14.5); White Blood Count 11.4 K/mm3 (4.5-10.0)
[2020-11-01 15:01] LABS: Alanine Aminotransferase 34 U/L (4-50); Albumin Level 3.8 g/dL (3.5-5.1); Alkaline Phosphatase 89 U/L (38-126); Anion Gap 7 mmol/L (8-16); Aspartate Amino Transferase 42 U/L (17-59); Bilirubin,Total 0.6 mg/dL (0.2-1.3); Blood Urea Nitrogen 12 mg/dL (9-20); Calcium 9.3 mg/dL (8.4-10.2); Carbon Dioxide 31 mmol/L (22-30); Chloride 100 mmol/L (98-107); Creatine Kinase 439 U/L (55-170); Estimated CRCL calculation 157 ml/min; Estimated Glomerular Filt Rate > 60; Glucose 157 mg/dL (75-110); Potassium 3.8 mmol/L (3.4-5.0); Sodium 138 mmol/L (137-145)
[2020-11-01 15:13] LABS: NT Pro B Type Natriuretic Pept 13 PG/ML (5-100); Troponin I < 0.012 ng/mL (0.000-0.034)
[2020-11-01 15:17] LABS: Add Urine Microscopic? YES; Appearance Urine Clear (Clear); Bacteria Urine Trace /hpf; Bilirubin Urine Negative (Negative); Blood Urine 1+ (Negative); Color Urine Yellow (Yellow); Glucose Urine UA Negative (Negative); Ketones Urine Negative (Negative); Leukocyte Esterase Ur Negative LEU/UL (Negative); Mucus Urine Rare /lpf; Nitrate Urine Negative (Negative); Protein Urine Negative (Negative); Specific Grav Ur 1.018 (1.001-1.035); Urobilinogen Urine Negative mg/dL (<2.0); WBC Urine 0-3 /hpf
[2020-11-01] MEDS: hydroCHLOROthiazide 25 MG TABLET PO (16:33)
[2020-11-01] MEDS: SODIUM CHLORIDE 0.9% IV 1,000 ML 999 ML IV CONT (16:38)
[2020-11-01 17:10] LABS: Alveolar/Arterial O2 Gradient 38.2 mmHg; Base Excess ABG 1.3 mEq/l (+/-2.0); Fractional Inspired Oxygen 21 %; HCO3 ABG 25.5 mEq/l (22.0-26.0); Oxygen Content ABG 17.5 %vol (16.0-22.0); Oxygen Saturation ABG 93.3 % (95.0-100.0); Oxyhemoglobin 92.2 % THb (90.0-100.0); PCO2 ABG 39.1 mmHg (35.0-45.0); PO2 ABG 64.7 mmHg (80.0-100.0); PO2 FiO2 Ratio Arterial Blood 3.08 %; Total Hemoglobin 13.5 g/dL (12.0-18.0); pH ABG 7.433 (7.350-7.450)
[2020-11-01 17:11] LABS: Device ROOM AIR; Modified Allen's Test Pass; Site Drawn LEFT BRACHIAL
[2020-11-01 18:09] LABS: D Dimer 2.72 ug/mL (<0.48)
[2020-11-01 18:21] LABS: Troponin I < 0.012 ng/mL (0.000-0.034)
--- NOTE | 2020-11-01 18:35 | PC.NURSE ---
Patient's father called and states, He cannot come back and live here, there is no one here to take care of him and I cannot do this any longer. Please have care coordination talk with the patient about fci placement.
--- NOTE | 2020-11-01 21:29 | ADMGEN ---
This patient, Luis A Crow, was admitted to [facility] Surg Room 325-01. Patient/family oriented to hospital policies and general routines including ID bracelet, bed and alarms, visiting hours, pain management, procedures, bathroom and other care routines, personal items, smoking policy, room service/diet, and visiting hours. Information on how to activate the Rapid Response Team has been discussed. Patient/Family are encouraged to report perceived risks to care and to ask questions if they do not understand what they are told or what they should do.
[2020-11-01 21:43] LABS: Troponin I 0.052 ng/mL (0.000-0.034)
[2020-11-02] VITALS (11 sets, daily range): BP systolic 134–152; BP diastolic 70–80; PULSE 70–98; RESP 18–24; TEMP 36.1–37.1; O2SAT 95–100
[2020-11-02 01:32] LABS: Troponin I 0.269 ng/mL (0.000-0.034)
--- NOTE | 2020-11-02 01:50 | ECG_ITS ---
Measurements Intervals [place] Rate: 84 P: 43 [place]: 156 QRS: 35 QRSD: 101 T: 58 QT: 382 QTc: 453 Interpretive Statements SINUS RHYTHM INCOMPLETE RIGHT BUNDLE BRANCH BLOCK EARLY PRECORDIAL R/S TRANSITION BORDERLINE ECG Electronically Signed On 11-02-2020 8:07:58 CLAM GRADER by Gustavo Kc D.O.
--- NOTE | 2020-11-02 01:54 | PM.IMHP ---
H&P: HPI History of Present Illness Date/Time: 11/02/20 01:54 Chief Complaint: Generalized weakness Narrative: This is a 54 year old obese male who is not known to take any home medications and has been living in his truck since he has been homeless for the past few weeks. Today he presented to the hospital with a complaint of generalized weakness that has been going on for months now. He also is known to have chronic lower extremity edema and lower extremity doppler U/S performed about 10 days ago which was negative for acute DVT. Today he also complained of shortness of breath. He denied any chest pain, palpitations, headache, fevers, chills, cough, abdominal pain, dysuria, hematuria, nausea or vomiting. He does however state that he had diarrhea recently which he believed was secondary to eating poorly from being homeless. Nursing staff alerted me tonight that the patient's second troponin came back positive. The patient denies any previous history of CAD and is not known to take any home medications. The patient was swabbed for COVID-19 in the ER yesterday. CTA Chest was performed in the ER which showed no central pulmonary emboli and pulmonary arterial hypertension. Review of Systems Review of Systems: All systems reviewed & are unremarkable except as noted in HPI and below PMFSH Past Medical History Medical History (Updated 11/02/20 @ 05:41 by Pete Young MD) Leg edema Surgical History Surgical History History of appendectomy S/P arthroscopic surgery of right knee Family History Family History Father BPH (benign prostatic hyperplasia) Lymph node cancer Hypercholesteremia Mother Diabetes mellitus Hip replacement planned Sibling Colon cancer Sibling No problems noted. Sibling No problems noted. Social History Social History Social History: the patient lives with his father. He has a paper I will that he does every day. The patient does not have a durable power staff attorney for healthcare. The patient is single and has no children. He desires to be a full code. Patient denies ever using any tobacco products. No marijuana or illicit drugs. Smoking status: Never smoker Second hand tobacco smoke exposure: No Alcohol intake: never Substance use: never Substance use type: does not use Gender identity (if verbalized by the patient): Male Spiritual care concerns: No Meds Home Medications and Allergies Home Medications Medication Instructions Recorded Confirmed Type No Home Medications 11/01/20 11/01/20 History Allergies Allergy/AdvReac Type Severity Reaction Status Date / Time steroid Allergy Mild Rash Uncoded 11/01/20 21:46 Vital Signs Vital Signs - 24 hr 11/01/20 14:23 11/01/20 14:28 11/01/20 15:32 Temperature 36.8 C Pulse Rate 110 H 110 H 98 Respiratory Rate 36 H 31 H Blood Pressure 186/87 H 187/98 H Pulse Oximetry 98 98 11/01/20 16:34 11/01/20 16:59 11/01/20 17:51 Temperature Pulse Rate 100 101 H 111 H Respiratory Rate 30 H 33 H 34 H Blood Pressure 183/74 H 134/67 166/84 H Pulse Oximetry 98 96 95 11/01/20 18:29 11/01/20 19:44 11/01/20 20:00 Temperature Pulse Rate 94 110 H 111 H Respiratory Rate 32 H 24 H Blood Pressure 185/96 H 166/110 H Pulse Oximetry 98 98 11/01/20 20:10 11/01/20 21:50 11/02/20 00:00 Temperature 36.9 C 36.9 C 36.9 C Pulse Rate 109 H 109 H 93 Respiratory Rate 20 20 18 Blood Pressure 146/79 H 146/79 H 142/80 H Pulse Oximetry 97 97 95 Exam Const: General: cooperative, alert, awake, ill appearing chronically, poor hygiene, tired appearing, uncomfortable and other (Diaphoretic+) Nutritional Appearance: obese morbidly obese Orientation/consciousness: patient oriented x3 HENMT: Head: normal to inspection Genera
--- NOTE | 2020-11-02 06:36 | PC.NURSE ---
This patient, Luis A Crow, was received from [ ] on 11/02/20 at approx 0300 from William JUÁREZ. Patient/family oriented to unit policies and routines
[2020-11-02 08:36] LABS: Hemoglobin A1C 5.6 % (<5.7)
[2020-11-02 11:06] LABS: Troponin I 0.131 ng/mL (0.000-0.034)
--- NOTE | 2020-11-02 13:06 | PM.IMPN ---
Progress Note: A&P Assessment and Plan (1) Homelessness: Code(s): Z59.0 - Homelessness Status: Acute Assessment and Plan: bereavement coordinator for placement. (2) Thrombocytosis: Code(s): D47.3 - Essential (hemorrhagic) thrombocythemia Status: Acute Assessment and Plan: Likely to be reactive Will continue to monitor. (3) Abnormal glucose: Code(s): R73.09 - Other abnormal glucose Status: Acute Assessment and Plan: Continue to monitor. (4) Elevated troponin: Code(s): R77.8 - Other specified abnormalities of plasma proteins Status: Acute Assessment and Plan: Trending down Cardiology consulted. (5) Suspected 2019 novel coronavirus infection: Code(s): Z20.828 - Contact with and (suspected) exposure to other viral communicable diseases Status: Acute Assessment and Plan: Awaiting PCR result (6) Generalized weakness: Code(s): R53.1 - Weakness Status: Acute Assessment and Plan: Likely secondary to deconditioning Patient has been living in his truck for 3 months PT/OT when appropriate. Subjective Date/time seen: 11/02/20 13:06 States that his breathing is not the usual gets sob when lying flat in bed and with minimal exertion. Review of Systems Review of Systems: Narrative: Patient has been living out of his truck for several weeks now. Constitutional: Comments: Chills unable to tell if fevers. Eyes: Comments: no vision changes. ENT: Comments: no ear ache, no throat pain, has some nasal congestion. Cardiovascular: Comments: no chest pain. Respiratory: Comments: sob when lying flat and with minimal exertion. Gastrointestinal: Comments: no n/v/abdominal pain. Musculoskeletal: Comments: Generalized weakness. Integumentary/Breasts: Comments: no rashes. Neurologic: Comments: No sensory motor deficit. Hematologic/Lymphatic: Comments: no LAP. Exam Narrative: Exam Narrative: Acutely ill looking. Const: General: cooperative, no acute distress, alert, awake, Physically active and ill appearing Nutritional Appearance: overweight Orientation/consciousness: patient oriented x3 HENMT: Head: normal to inspection and normocephalic Ears: hearing grossly normal bilaterally General nose exam: Normal external nose present Face and sinus: normal facial exam Eyes: General: appearance normal, both eyes and all related structures Pupils: Equal, round and reactive pupils present EOM: EOMs intact bilaterally Neck: Neck: no lymphadenopathy, supple and no JVD Resp: Auscultation: diminished lung sounds Cardio: Rate: regular rate Rhythm: regular rhythm GI: GI Palp: Yes Soft to palpation and Yes No hepatosplenomegaly present Skin: General skin exam: normal color Trauma: no lacerations or abrasions Wounds: no wounds Hair: normal Nails: normal Neuro: General: patient oriented x3 and CN's II-XI intact bilaterally Cranial nerves: Yes CN's II-XII intact bilaterally and Yes Equal, round and reactive pupils present Cognition (Neuro): normal cognition Speech: normal speech Extrem: General: other (B/L LE edema.) Objective Data Vital Signs Vital Signs: Vital Signs - 24 hr 11/01/20 14:23 11/01/20 14:28 11/01/20 15:32 Temperature 98.2 F Pulse Rate 110 H 110 H 98 Respiratory Rate 36 H 31 H Blood Pressure 186/87 H 187/98 H Pulse Oximetry 98 98 11/01/20 16:34 11/01/20 16:59 11/01/20 17:51 Temperature Pulse Rate 100 101 H 111 H Respiratory Rate 30 H 33 H 34 H Blood Pressure 183/74 H 134/67 166/84 H Pulse Oximetry 98 96 95 11/01/20 18:29 11/01/20 19:44 11/01/20 20:00 Temperature Pulse Rate 94 110 H 111 H Respiratory Rate 32 H 24 H Blood Pressure 185/96 H 166/110 H Pulse Oximetry 98 98 11/01/20 20:10 11/01/20 21:50 11/02/20 00:00 Temperature 98.4 F 98.4 F 98.4 F Pulse Rate 109 H 109 H 98 Respiratory Rate 20 20 18 Blood Pressure 146/79 H 146/79 H 142/80 H Pulse Oximetr
--- NOTE | 2020-11-02 15:24 | PM.CNCAR ---
Assessment and Plan Additional Plan 54-year-old gentleman with: Modest elevation of troponin being sampled in the absence of any other clinical or electrocardiographic evidence of an acute coronary syndrome. I do not believe it would be of this patient's benefit to initiate an ischemia workup in this setting. His principal complaint has to do with weakness of his left leg in his trunk and I would of suggest the workup be centered around these chief complaints. If you have other specific questions regarding his cardiac status while he is in the hospital please let me know at this point I will not plan on following him any further. He says he is being held NPO until this consultation I do not have any cardiac reason he needs to be NPO. Sherman Alonzo MD [facility] History of Present Illness History of Present Illness Consult date/time: 11/02/20 15:24 Reason For Visit: Weakness Narrative: This is a 54-year-old man of seeing at the request of the hospitalist because of troponinemia. Patient does not have any cardiac complaints from the best I can tell according to the chart and speaking to him at this time this afternoon. He is a gentleman without any previous history of any cardiac problems. He unfortunately has been homeless for about a month or so and states he has been living in his truck basically sitting upright on the [place] he has become significantly weekend and came to the emergency room because of weakness. Specifically he states that his left lower extremity is weak and he has a difficult time walking because of that he also states that the muscles in his trunk are weekend if he is lying down he is unable to sit up and stand up without grabbing onto something with his arms. He is not reporting any sort of chest pain pressure in his more heaviness. He does not have any palpitations orthopnea or PND. He came into the emergency room and for reasons that are not explained in the chart troponin levels were done and they are modestly elevated. The 1st 2 samples were normal the 2nd sample was slightly elevated the 5th sample is up to 0.1. The electrocardiograms do not show any evidence of acute ischemia or injury. In this setting I am seeing him in consultation. He is being ruled out for sanches virus the results of that assay are pending at the time of this dictation. His principal reason for being concerned about his own health was the weakness of his leg in his trunk to the point where he is unable to sit up. Review of Systems Constitutional: Constitutional: Reports as per HPI and Reports weakness Eyes: Eyes: Reports no additional eye complaints ENT: Reports system reviewed and no additional complaints, except as documented Cardiovascular: Cardiovascular: Reports no additional cardiovascular complaints Respiratory: Respiratory: Reports no additional respiratory complaints Gastrointestinal: Gastrointestinal: Reports no additional gastrointestinal complaints Musculoskeletal: Musculoskeletal: Reports as per HPI Integumentary/Breasts: Skin/Breast: Reports system reviewed and no additional complaints, except as docu Neurologic: Reports as per HPI Endocrine: Endocrine: Reports no additional endocrine complaints Hematologic/Lymphatic: Hematologic/Lymphatic: Reports no additional hematologic/lymphatic complaints Allergic/Immunologic: Allergic/Immunologic: Reports no additional allergic/immunologic complaints PMFSH Past Medical History Medical History (Updated 11/02/20 @ 05:41 by Pete Young MD) Leg edema Surgical History Surgical History History of appendectomy S/P arthroscopic surgery of right knee Family History Family History Father BPH (benign prostatic hyperplasia) Lymph node cancer Hypercholesteremia Mother Diabetes mellitus Hip replacement planned Sibling Colon cancer Sibling
[2020-11-02 16:54] LABS: SARS-CoV-2 RNA PCR Negative
--- NOTE | 2020-11-02 18:39 | PC.NURSE ---
pt status is medical- pt transferred to [facility] via bed accompanied by staff- condition stable at this time- report given to Wilmar JUÁREZ
[2020-11-03 04:45] VITALS: BP 153/73; PULSE 78; RESP 20; TEMP 36.8; O2SAT 99
[2020-11-03 08:00] VITALS: BP 130/72; PULSE 72; RESP 14; O2SAT 98
--- NOTE | 2020-11-03 11:12 | PM.IMPN ---
Progress Note: A&P Assessment and Plan (1) Homelessness: Code(s): Z59.0 - Homelessness Status: Acute Assessment and Plan: legal coordinator for placement. (2) Thrombocytosis: Code(s): D47.3 - Essential (hemorrhagic) thrombocythemia Status: Acute Assessment and Plan: Likely to be reactive Will continue to monitor. (3) Abnormal glucose: Code(s): R73.09 - Other abnormal glucose Status: Acute Assessment and Plan: Continue to monitor. (4) Elevated troponin: Code(s): R77.8 - Other specified abnormalities of plasma proteins Status: Acute Assessment and Plan: Trending down Cardiology consulted. (5) Suspected 2019 novel coronavirus infection: Code(s): Z20.828 - Contact with and (suspected) exposure to other viral communicable diseases Status: Acute Assessment and Plan: Awaiting PCR result (6) Generalized weakness: Code(s): R53.1 - Weakness Status: Acute Assessment and Plan: Likely secondary to deconditioning Patient has been living in his truck for 3 months PT/OT when appropriate. Additional Plan Date of service was 11/01/2020 at 01:00 hrs Subjective Date/time seen: 11/03/20 11:12 Interval history: Patient was seen to the morning on today. Patient denies any shortness of breath or chest pain. Patient however has pain in the left ankle area, no fever no chills, mood stable Review of Systems Review of Systems: All systems reviewed & are unremarkable except as noted in HPI and below Exam Narrative: Exam Narrative: Acutely ill looking. Const: General: cooperative, no acute distress, alert, awake, Physically active, ill appearing chronically, poor hygiene, tired appearing, uncomfortable and other (Diaphoretic+) Nutritional Appearance: obese morbidly obese and overweight Orientation/consciousness: patient oriented x3 HENMT: Head: normal to inspection and normocephalic Ears: hearing grossly normal bilaterally General nose exam: Normal external nose present Face and sinus: normal facial exam Mouth: Yes Normal oral and palatal mucosa present and Yes oropharynx normal Eyes: General: appearance normal, both eyes and all related structures Pupils: Equal, round and reactive pupils present EOM: EOMs intact bilaterally Neck: Neck: no lymphadenopathy, supple and no JVD Thyroid: thyroid normal Lymphatic: lymphadenopathy not noted Resp: Effort & Inspection: normal respiratory effort Auscultation: diminished lung sounds Cardio: Rate: regular rate and tachycardic Rhythm: regular rhythm Heart sounds: no murmurs GI: Inspection: normal to inspection Auscultation: normal bowel sounds Skin: General skin exam: normal color and no rashes or lesions noted Trauma: no lacerations or abrasions Wounds: no wounds Hair: normal Nails: normal Neuro: General: patient oriented x3 and CN's II-XI intact bilaterally Cranial nerves: Yes CN's II-XII intact bilaterally and Yes Equal, round and reactive pupils present Cognition (Neuro): normal cognition Speech: normal speech Motor exam (neuro): 5/5 motor strength present throughout Sensory Exam: normal sensation Extrem: General: normal to inspection, edema bilateral and other (Mild pain in left ankle on rom) Psych: Mental Status: mental status grossly normal Affect: normal affect Objective Data Vital Signs Vital Signs: Vital Signs - 24 hr 11/02/20 12:00 11/02/20 12:30 11/02/20 14:00 Temperature 36.2 C L Pulse Rate 88 77 70 Respiratory Rate 20 Blood Pressure 134/70 Pulse Oximetry 98 11/02/20 16:00 11/02/20 20:55 11/02/20 23:28 Temperature 37.1 C 37.1 C 37.0 C Pulse Rate 88 86 88 Respiratory Rate 20 20 20 Blood Pressure 152/73 H 147/73 H 138/76 Pulse Oximetry 98 99 99 11/03/20 04:45 11/03/20 08:00 Temperature 36.8 C Pulse Rate 78 72 Respiratory Rate 20 14 Blood Pressure 153/73 H 130/72 Pulse Oximetry 99 98 Intake/Output Intake/O
[2020-11-03 11:40] LABS: Hemoglobin A1C 5.7 % (<5.7)
[2020-11-03] MEDS: traMADol HCL (*CRX) 50 MG TABLET PO (11:42)
[2020-11-03] MEDS: ASPIRIN 325 MG TABLET PO (11:43)
[2020-11-03] MEDS: HEPARIN SODIUM 5,000 UNITS/ML VIAL 5000 UNITS SUB-Q ×2 (11:43→20:28)
[2020-11-03 11:45] LABS: Uric Acid 6.4 mg/dL (3.5-8.5)
[2020-11-03 12:00] VITALS: BP 130/72; PULSE 71; RESP 15; O2SAT 98
[2020-11-03] MEDS: POTASSIUM CHLORIDE 20 MEQ TABLET.ER PO (12:03)
[2020-11-03] MEDS: FUROSEMIDE INJ 40 MG/4 ML VIAL IV PUSH (12:03)
[2020-11-03 16:00] VITALS: BP 123/69; PULSE 91; RESP 14; O2SAT 98
[2020-11-03 20:25] VITALS: BP 138/76; PULSE 86; RESP 18; TEMP 36.1; O2SAT 97
[2020-11-04] VITALS: BP 142/72; PULSE 85; RESP 16; O2SAT 98
[2020-11-04 04:00] VITALS: BP 129/66; PULSE 80; RESP 16; TEMP 36.3; O2SAT 98
[2020-11-04 08:00] VITALS: PULSE 80; RESP 16; O2SAT 98
[2020-11-04] MEDS: POTASSIUM CHLORIDE 20 MEQ TABLET.ER PO (09:42)
[2020-11-04] MEDS: ASPIRIN 325 MG TABLET PO (09:42)
[2020-11-04] MEDS: FUROSEMIDE INJ 40 MG/4 ML VIAL IV PUSH (09:43)
[2020-11-04] MEDS: HEPARIN SODIUM 5,000 UNITS/ML VIAL 5000 UNITS SUB-Q ×2 (09:43→20:44)
[2020-11-04] MEDS: traMADol HCL (*CRX) 50 MG TABLET PO (09:45)
--- NOTE | 2020-11-04 11:26 | PM.DS ---
DS: Admitting Diagnosis Admitting Diagnosis Admitting Diagnosis: 1. Generalized weakness 2. Elevated troponin 3. Left ankle pain DS: Discharge Diagnosis Discharge Diagnosis (1) Homelessness: Code(s): Z59.0 - Homelessness Status: Acute Assessment and Plan: music coordinator for placement. (2) Thrombocytosis: Code(s): D47.3 - Essential (hemorrhagic) thrombocythemia Status: Acute Assessment and Plan: Likely to be reactive Will continue to monitor. (3) Abnormal glucose: Code(s): R73.09 - Other abnormal glucose Status: Acute Assessment and Plan: Continue to monitor. (4) Elevated troponin: Code(s): R77.8 - Other specified abnormalities of plasma proteins Status: Acute Assessment and Plan: Trending down Cardiology consulted. (5) Suspected 2019 novel coronavirus infection: Code(s): Z20.828 - Contact with and (suspected) exposure to other viral communicable diseases Status: Acute Assessment and Plan: Awaiting PCR result (6) Generalized weakness: Code(s): R53.1 - Weakness Status: Acute Assessment and Plan: Likely secondary to deconditioning Patient has been living in his truck for 3 months PT/OT when appropriate. DS: Summary Hospital Course Reason for hospitalization: 1. Generalized weakness 2. Elevated troponin 3. Left ankle pain Hospital Course: Patient is 54 years old male was admitted with complaint of having generalized weakness left ankle pain and also found to have incidental finding of elevated troponin. Three sets of cardiac enzymes were done cardiology was consulted. Cardiology recommended on the medical management at present time and follow-up as an outpatient. X-ray left ankle shows arthritis patient was given pain medication. Today patient is feeling better so patient discharged home stable condition, low-sodium diet activity as tolerated with primary care physician and cardiology outpatient next week condition dime-sized stable Time spent discussing smoking cessation with patient: 3 to 10 minutes Status at Discharge Cognitive/behavioral status at discharge: Stable Functional status at discharge: independent ambulation Overall status at discharge: patient is back to baseline Time Spent with Patient Time attestation: Total time spent providing and/or coordinating discharge services: Time spent: Less than 30 minutes Specific discharge activities: As tolerated Exam Narrative: Exam Narrative: Acutely ill looking. Const: General: cooperative, no acute distress, alert, awake, Physically active, ill appearing chronically, poor hygiene, tired appearing, uncomfortable and other (Diaphoretic+) Nutritional Appearance: obese morbidly obese and overweight Orientation/consciousness: patient oriented x3 HENMT: Head: normal to inspection and normocephalic Ears: hearing grossly normal bilaterally General nose exam: Normal external nose present Face and sinus: normal facial exam Mouth: Yes Normal oral and palatal mucosa present and Yes oropharynx normal Eyes: General: appearance normal, both eyes and all related structures Pupils: Equal, round and reactive pupils present EOM: EOMs intact bilaterally Neck: Neck: no lymphadenopathy, supple and no JVD Thyroid: thyroid normal Lymphatic: lymphadenopathy not noted Resp: Effort & Inspection: normal respiratory effort Auscultation: diminished lung sounds Cardio: Rate: regular rate and tachycardic Rhythm: regular rhythm Heart sounds: no murmurs GI: Inspection: normal to inspection Auscultation: normal bowel sounds Skin: General skin exam: normal color and no rashes or lesions noted Trauma: no lacerations or abrasions Wounds: no wounds Hair: normal Nails: normal Neuro: General: patient oriented x3 and CN's II-XI intact bilaterally Cranial nerves: Yes CN's II-XII intact bilaterally and Yes Equal, round and reactive pupils present Cognition (Neuro):
[2020-11-04 12:00] VITALS: BP 132/80; PULSE 95; RESP 18; TEMP 36.6; O2SAT 99
[2020-11-04 16:00] VITALS: BP 143/88; PULSE 88; RESP 18; TEMP 36.8; O2SAT 100
--- NOTE | 2020-11-04 17:48 | PC.NURSE ---
Discharge delayed, MD aware. Care Coordination to follow up for safety of patient upon release. Unable to walk the distance needed to get into the house in addition to the steps into the house. Pt said he would most likely contact EMS to assist him getting in his father's house at discharge. Dr. Gonzalez notified and said it would be fine for patient to stay another night. Started on PO antibiotics.
[2020-11-04] MEDS: ACETAMINOPHEN 325 MG TABLET 650 MG PO (18:24)
[2020-11-04] MEDS: CIPROFLOXACIN 500 MG TAB PO (18:24)
[2020-11-04 20:35] VITALS: BP 142/74; PULSE 91; RESP 18; TEMP 36.3; O2SAT 98
[2020-11-05] VITALS: BP 145/77; PULSE 90; RESP 18; O2SAT 98
[2020-11-05 04:00] VITALS: BP 130/72; PULSE 85; RESP 16; TEMP 36.4; O2SAT 97
[2020-11-05] MEDS: CIPROFLOXACIN 500 MG TAB PO (05:45)
[2020-11-05 08:00] VITALS: BP 132/83; PULSE 82; RESP 18; TEMP 36.8; O2SAT 95
[2020-11-05] MEDS: ASPIRIN 325 MG TABLET PO (09:06)
[2020-11-05] MEDS: POTASSIUM CHLORIDE 20 MEQ TABLET.ER PO (09:06)
--- NOTE | 2020-11-05 09:13 | PC.NURSE ---
0830 - O2 D/C,O2 sat 96%on RA. PT walked pt to chair, O2 bro @ 98% on RA.
[2020-11-05] MEDS: HEPARIN SODIUM 5,000 UNITS/ML VIAL 5000 UNITS SUB-Q (09:59)
[2020-11-05] MEDS: FUROSEMIDE INJ 40 MG/4 ML VIAL IV PUSH (09:59)
--- NOTE | 2020-11-05 10:19 | PM.DS ---
DS: Admitting Diagnosis Admitting Diagnosis Admitting Diagnosis: 1. Generalized weakness 2. Elevated troponin 3. Homelessness DS: Discharge Diagnosis Discharge Diagnosis (1) Homelessness: Code(s): Z59.0 - Homelessness Status: Acute Assessment and Plan: billing and insurance coordinator for placement. (2) Thrombocytosis: Code(s): D47.3 - Essential (hemorrhagic) thrombocythemia Status: Acute Assessment and Plan: Likely to be reactive Will continue to monitor. (3) Abnormal glucose: Code(s): R73.09 - Other abnormal glucose Status: Acute Assessment and Plan: Continue to monitor. (4) Elevated troponin: Code(s): R77.8 - Other specified abnormalities of plasma proteins Status: Acute Assessment and Plan: Trending down Cardiology consulted. (5) Suspected 2019 novel coronavirus infection: Code(s): Z20.828 - Contact with and (suspected) exposure to other viral communicable diseases Status: Acute Assessment and Plan: Awaiting PCR result (6) Generalized weakness: Code(s): R53.1 - Weakness Status: Acute Assessment and Plan: Likely secondary to deconditioning Patient has been living in his truck for 3 months PT/OT when appropriate. DS: Summary Hospital Course Reason for hospitalization: 1. Generalized weakness 2. Elevated troponin 3. Left ankle pain Hospital Course: Chief Complaint: Generalized weakness Narrative: This is a 54 year old obese male who is not known to take any home medications and has been living in his truck since he has been homeless for the past few weeks. Today he presented to the hospital with a complaint of generalized weakness that has been going on for months now. He also is known to have chronic lower extremity edema and lower extremity doppler U/S performed about 10 days ago which was negative for acute DVT. Today he also complained of shortness of breath. He denied any chest pain, palpitations, headache, fevers, chills, cough, abdominal pain, dysuria, hematuria, nausea or vomiting. He does however state that he had diarrhea recently which he believed was secondary to eating poorly from being homeless. Nursing staff alerted me tonight that the patient's second troponin came back positive. The patient denies any previous history of CAD and is not known to take any home medications. The patient was swabbed for COVID-19 in the ER yesterday. CTA Chest was performed in the ER which showed no central pulmonary emboli and pulmonary arterial hypertension. Patient was admitted in the hospital,. Serial cardiac enzymes were done. Cardiology was consulted. X-ray of the foot only shows arthritis. Patient gradually got better with diuretics and p.o. Cipro and pain medicine. Today patient is feeling good patient discharged under home health care. Activity as tolerated. Patient advised to come back outpatient for physical therapy. Patient advised to follow-up with outpatient Cardiology. Patient advised to watch his diet and monitor his sugar outpatient at home. Patient advised to see his primary care physician and show his sugar results outpatient. Patient was read all the directions. Patient discharged under home health care. Activity as tolerated. Condition stable at time of discharge. Time spent discussing smoking cessation with patient: more than 10 minutes Status at Discharge Cognitive/behavioral status at discharge: Stable Functional status at discharge: independent ambulation Overall status at discharge: patient is back to baseline Time Spent with Patient Time attestation: Total time spent providing and/or coordinating discharge services: Time spent: Less than 30 minutes Specific discharge activities: As tolerated Exam Narrative: Exam Narrative: Acutely ill looking. Const: General: cooperative, no acute distress, alert, awake, Physically active, ill appearing chronically, poor hygiene, tired appearin
[2020-11-05 11:55] VITALS: BP 124/88; PULSE 95; RESP 18; TEMP 37.1; O2SAT 94
--- NOTE | 2020-11-05 11:55 | PC.NURSE ---
OT in to work with patient. Assisting patient to get dressed to prepare for D/C
--- NOTE | 2020-11-05 13:51 | PC.NURSE ---
[facility] here to transport pt. Pt transferred to [facility] and D/C with [facility]
== END 2020-11-05 13:52 | disposition home health service (06) ==
LOC: ANHED 16:51 → ANH3MEDSUR 11-02 02:02 → ANHCPC 11-03 04:20 → ANH3MEDSUR 11-10 14:00 → ANHCPC 11-10 14:00 → ANHIMU 11-10 14:00
PROVIDERS: Family Medicine; Admitting Provider Internal Medicine; Emergency Provider Emergency Medicine; Visit Provider Internal Medicine
DX: D47.3 Essential (hemorrhagic) thrombocythemia (principal); Z59.0 Homelessness; R53.1 Weakness; Z20.828 Contact with and (suspected) exposure to other viral communicable diseases; R77.8 Other specified abnormalities of plasma proteins; R73.09 Other abnormal glucose; R60.0 Localized edema; E66.01 Morbid (severe) obesity due to excess calories; Z68.41 Body mass index [BMI] 40.0-44.9, adult
CPT/HCPCS: 36415; 36600; 71045; 71275; 73610; 73630; 80053; 81001; 82550; 82805; 83036; 83880; 84484; 84550; 85025; 85380; 87635; 93005; 96360; 96372; 96374; 97110; 97116; 97161; 97165; 97530; 97535; 99285; A9270; C9803; G0378; G0379; J0456; J0696; J1644; J1940; J7030; Q9967; U0003

== ENCOUNTER 2020-11-07 02:21 | Observation (INO) | payer MEDICAID, SELFPAY ==
[2020-11-07] VITALS (9 sets, daily range): BP systolic 123–148; BP diastolic 74–91; PULSE 80–102; RESP 12–25; TEMP 36.4–37; O2SAT 93–98; BMI 39.6
--- NOTE | ~2020-11-07 | XR_ITS ---
EXAMINATION: XR chest 1V portable EXAM DATE: 11/07/2020 02:40 INDICATION: Weakness. TECHNIQUE: Portable AP frontal chest x-ray was obtained. Comparison is made to prior examination from 11/01/2020, 07/14/2020. FINDINGS: Patient is rotated to the right likely contributing to the more opacified appearance to the right lung and decreased attenuation to the left lung. No confluent consolidation, pneumothorax or p leural effusion suspected. Cardiomediastinal silhouette is normal. There are no osseous abnormalities identified. IMPRESSION: No acute findings suspected. Reviewed, dictated and finalized at location A. [employer]
--- NOTE | 2020-11-07 02:28 | ECG_ITS ---
Measurements Intervals [place] Rate: 101 P: 60 ME: 149 QRS: 17 QRSD: 97 T: 56 QT: 358 QTc: 464 Interpretive Statements SINUS TACHYCARDIA BORDERLINE T WAVE ABNORMALITY- HIGH LATERAL LEADS BASELINE ARTIFACT- I, II, III, AVR, AVL BORDERLINE ECG Electronically Signed On 11-07-2020 7:30:17 PSYCHIATRIC NP by Gustavo Kc D.O.
--- NOTE | 2020-11-07 02:30 | ED.WEAKNESS ---
HPI - Weakness General Chief complaint: Weakness Stated complaint: weakness for weeks Source: RN notes reviewed History of Present Illness HPI Narrative: Patient presents to emergency department from home via EMS for weakness. Per EMS they have been up to the patient's house 4 times today for lift assist. The patient's been having difficult time getting up and walking and getting out of bed. The patient was recently admitted to the hospital have been discussions about possible detention placement at that time the patient denies any fevers or chills chest pain shortness of breath abdominal pain nausea vomiting or any other symptoms Related Data Allergies Allergy/AdvReac Type Severity Reaction Status Date / Time steroid Allergy Mild Rash Uncoded 11/01/20 21:46 Review of Systems Review of Systems: Narrative: Gen.: Denies fevers or chills Eyes: Denies eye pain or visual change ENT: Denies congestion Respiratory: Denies shortness of breath or cough CV: Denies chest pain or palpitations GI: Denies abdominal pain nausea, emesis or diarrhea Musculoskeletal: Denies back pain or muscle pain Neuro: See HPI Skin: Denies rash Except as documented, all other systems reviewed and negative [facility] Past Medical History Medical History Leg edema Surgical History Surgical History History of appendectomy S/P arthroscopic surgery of right knee Family History Family History Father BPH (benign prostatic hyperplasia) Lymph node cancer Hypercholesteremia Mother Diabetes mellitus Hip replacement planned Sibling Colon cancer Sibling No problems noted. Sibling No problems noted. Social History Social History Social History: the patient lives with his father. He has a paper I will that he does every day. The patient does not have a durable power staff attorney for healthcare. The patient is single and has no children. He desires to be a full code. Patient denies ever using any tobacco products. No marijuana or illicit drugs. Smoking status: Never smoker Second hand tobacco smoke exposure: No Alcohol intake: never Substance use: never Substance use type: does not use Gender identity (if verbalized by the patient): Male Spiritual care concerns: No Exam Narrative: Exam Narrative: APPEARANCE: No acute distress, nontoxic, resting in bed EYES: EOMI HEENT: Normocephalic, atraumatic, OMM RESPIRATORY: No respiratory distress Clear to auscultation bilaterally with no rhonchi wheezing or rales. CARDIOVASCULAR: Regular rate and rhythm without murmurs rubs or gallops. ABDOMINAL: Soft, nontender, nondistended, no rebound or guarding MUSCULOSKELETAl: Moves all extremities. No clubbing, cyanosis 3+ edema the bilateral lower extremities NEURO: Awake and alert x 4. Following commands, speech normal, no focal deficits SKIN:: Warm, dry. No rashes lesions or abrasions PSYCHIATRIC: Normal affect/mood, Course Course Emergency Course: Reviewed old records Discussed with patient he states that at this time he does feel he needs detention placement as he is unable to care for himself Discussed with Dr. Desai presentation work-up agrees with admission at this time Discussed with patient and family results of workup and diagnosis. Discussed need for admission. Patient and family understand and agree to current treatment plan Vital Signs Vital signs: Vital Signs Temperature 98.0 F 11/07/20 02:20 Pulse Rate 100 11/07/20 02:20 Respiratory Rate 25 H 11/07/20 02:20 Blood Pressure 148/78 H 11/07/20 02:20 Pulse Oximetry 98 11/07/20 02:20 Temperature 98.0 F 11/07/20 02:20 Pulse Rate 80 11/07/20 03:37 Respiratory Rate 25 H 11/07/20 02:20 Blo
[2020-11-07 03:28] LABS: Basophils Absolute Auto 0.1 K/mm3 (0.0-0.1); Basophils Percent Auto 0.7 % (0.2-1.2); Eosinophils Absolute Auto 0.4 K/mm3 (0-0.3); Eosinophils Percent Auto 3.2 % (0-4.4); Hematocrit 43.5 % (42.0-52.0); Hemoglobin 14.5 g/dL (14.0-18.0); Immature Granulocyte Absolute 0.11 K/mm3 (0.00-0.031); Immature Granulocyte Percent A 0.9 % (0-0.5); Lymphocytes Absolute Auto 1.62 K/mm3 (0.9-3.2); Lymphocytes Percent Auto 12.8 % (18.3-44.2); Mean Corpuscular HGB Conc 33.3 g/dl (32-36); Mean Corpuscular Hemoglobin 30.4 pg (26-34); Mean Corpuscular Volume 91.2 fl (80-100); Mean Platelet Volume 8.4 fl (7.4-10.4); Monocytes Absolute Auto 1.3 K/mm3 (0.1-0.6); Monocytes Percent Auto 10.5 % (2.6-8.5); Neutrophils Absolute Auto 9.1 K/mm3 (1.3-6.7); Neutrophils Percent Auto 71.9 % (45.5-73.1); Platelet Count Result 541 k/mm3 (150-375); Red Blood Count 4.77 M/mm3 (4.6-6.20); Red Cell Distribution Width 12.6 % (11.5-14.5); White Blood Count 12.6 K/mm3 (4.5-10.0)
[2020-11-07 03:36] LABS: Add Urine Microscopic? YES; Appearance Urine Clear (Clear); Bilirubin Urine Negative (Negative); Blood Urine Negative (Negative); Color Urine Yellow (Yellow); Glucose Urine UA Negative (Negative); Ketones Urine Trace mg/dL (Negative); Leukocyte Esterase Ur Negative LEU/UL (Negative); Mucus Urine Rare /lpf; Nitrate Urine Negative (Negative); Protein Urine Negative (Negative); Specific Grav Ur 1.023 (1.001-1.035); Urobilinogen Urine Negative mg/dL (<2.0)
[2020-11-07 03:39] LABS: Partial Thromboplastin Time 29.7 SECONDS (22.3-36.8); Prothrombin Time 13.4 Seconds (11.1-14.7)
[2020-11-07 03:41] LABS: Alanine Aminotransferase 59 U/L (4-50); Albumin Level 3.8 g/dL (3.5-5.1); Alkaline Phosphatase 83 U/L (38-126); Anion Gap 5 mmol/L (8-16); Aspartate Amino Transferase 68 U/L (17-59); Bilirubin,Total 0.6 mg/dL (0.2-1.3); Blood Urea Nitrogen 23 mg/dL (9-20); Calcium 9.6 mg/dL (8.4-10.2); Carbon Dioxide 34 mmol/L (22-30); Chloride 94 mmol/L (98-107); Estimated CRCL calculation 150 ml/min; Estimated Glomerular Filt Rate > 60; Glucose 140 mg/dL (75-110); Sodium 133 mmol/L (137-145)
--- NOTE | 2020-11-07 03:49 | PM.IMHP ---
H&P: HPI History of Present Illness Date/Time: 11/07/20 03:49 Chief Complaint: Progressive weakness Narrative: Luis A Crow is a 54 year old male with past medical history of morbid obesity and homelessness presents to the ED with complaints of generalized weakness. Patient states he has been getting progressively weaker since the summer. He states he was active and had a job and lived with his father. 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 He was living with his 80-year-old father and was fairly independent. He has a dog that he was caring for. He does not have a couch or bed to sleep in at his father's house so he decided to sleep in his truck (the acute changes leading him to sleep in his truck are not very clear). He was using the money he made to pay for gas to keep to truck warm and is eating fast food. He was not getting out of his truck and developed lower extremity weakness and increased swelling, furthering his decline. His only other family is his mother who lives out of town who he sees once or twice a year when she comes and visits. He has no other family or children. He has not seen a primary care provider because of cost. He has had this progressive failure to thrive. Patient was recently evaluated here at [facility] 11/02-11/05 for generalized weakness and elevated troponin. His troponins were down trending and with no chest pain cardiology did not recommend ischemic workup. He had venous duplex of his lower extremities for chronic lower extremity edema which was negative for DVT. Previously had a CTA of chest which was negative. An x-ray of his foot which showed arthritis. He was treated with diuretics for his edema and was put on p.o. Cipro. Plan was for patient to go home with home health and have outpatient physical therapy. He was discharged with Lasix, potassium supplement, aspirin, Cipro for a week, Tylenol which he was not taking. After going home he has been progressively weak and not able to take care of himself. EMS has been called for times to his house to help get back up. Was also previously admitted 07/14-07/15 for left upper extremity weakness and abscess, seen by surgery Dr. 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 He was having difficulty with his paper out because he is getting left upper extremity weakness and may no longer be able to do the job. There is no documentation of him ever being worked up for multiple sclerosis or any other neurological condition leading to his progressive weakness and with his age is unclear what is causing his debility. Currently patient is so weak he has not been able to shower or care for himself at all. In the ED: EKG shows sinus tachycardia rate 101, vitals show some tachypnea. Patient has been worked up multiple times for his weakness and odd complaints and was [place] to be [place] [facility]. This time, patient is agreeable to [place] [facility] [place] since he cannot take care of himself and cannot go home because his 80-year-old father cannot take care of him anymore. Review of Systems Review of Systems: Narrative: Constitutional: No Fever, No Chills, No Night Sweats. Endorses generalized weakness. ENT/Mouth: No Hearing Changes, No Ear Pain, No Nasal Congestion, No Sinus Pain, No Hoarseness, No sore throat, No Rhinorrhea, No Swallowing Difficulty Eyes: No Eye Pain, No Redness, No Vision Changes Cardiovascular: No Chest Pain, No Palpitations, No Dyspnea on Exertion, No Orthopnea, No Claudication, No Edema Respiratory: No Cough, No Sputum, No Wheezing, No Shortness of Breath Gastrointestinal: No Nausea, No Vomiting, No Diarrhea, No Constipation, No Abdominal Pain, No Heartburn, No Hematochezia, No Melena Genitourinary: No Dysuria, No Urinary Frequency, No Hematuria, No Urinary Incontinence, No Urgency Musculoskeletal: No Arthralgias
--- NOTE | 2020-11-07 07:00 | PC.NURSE ---
This patient, Luis A Crow, was admitted to [facility] Surg Room 323-01. Patient/family oriented to hospital policies and general routines including ID bracelet, bed and alarms, visiting hours, pain management, procedures, bathroom and other care routines, personal items, smoking policy, room service/diet, and visiting hours. Information on how to activate the Rapid Response Team has been discussed. Patient/Family are encouraged to report perceived risks to care and to ask questions if they do not understand what they are told or what they should do.
[2020-11-07] MEDS: ENOXAPARIN 40 MG/0.4 ML SYRINGE SUB-Q (08:17)
--- NOTE | 2020-11-07 14:33 | PM.IMPN ---
Progress Note: A&P Assessment and Plan (1) Generalized weakness: Code(s): R53.1 - Weakness Status: Acute Assessment and Plan: -failure to thrive and mild dehydration (perhaps chronically) -with progressive weakness, consulting physical therapist to evaluate and treat -patient was unable to take care of himself with home health, this time he will need to be discharged to assisted, consulting case management -patient's poor nutrition especially with fast food, consulting dietitian -unclear of multiple sclerosis has been worked up for any other neurological condition causing his progressive weakness, consulting Neurology -no home records on record? -no focal deficits, no CVA s/s, no seizure s/s. (2) Homelessness: Code(s): Z59.0 - Homelessness Status: Acute Assessment and Plan: -was living in his truck, fallen next to truck and unable to get up on his home - laid in parking lot yelling for help, patient needs place to stay likely needs placement in assisted as he cannot take care of himself, as EMS has been called 4 times to help him get back up and/or into truck. -patient appears to have Deconditioning, Morbid Obesity, Muscle weakness, possible foot drop and localized Cellulitis of LLE - he will likely need placement for short term or long-term care -patient needs bathing, teaching of self -care as well (3) Thrombocytosis: Code(s): D47.3 - Essential (hemorrhagic) thrombocythemia Status: Acute Assessment and Plan: -patient has history of elevated platelets, today 541 Hgb 14.5 and Hct 43.5 no s/s of DVT at this time. Last Venous US was with no DVT. -encourage better oral hydration as patient appears dry on exam and on appearance of dark urine. (4) Cellulitis and abscess of foot: Code(s): L03.119 - Cellulitis of unspecified part of limb; L02.619 - Cutaneous abscess of unspecified foot Status: Acute Assessment and Plan: superior of LLE / ankle region where his home BENNIE stockings caused pressure/erythema/masseration = Cellulitis. keeping BENNIE stockings off extremities at this time elevating BLE treating with CHRISTIE Foster as patient is awaiting placement to Rehab facility. encouraged better nutrition and increased hydration keep skin clean, dry, and without swelling. teaching patient to remove stockings every night and how to keep folds or overlapping of stocking to occur. Additional Plan Diet: Regular DVT prophylaxis: Lovenox Code status: Full code Disposition: Placement in assisted Subjective Date/time seen: 11/07/20 14:33 Luis A is feeling slightly better, but remains weak and unsteady. He worked with PT on transfers today, but remains unsafe for discharge to independence. He stated that he is still requiring rehab at a short term or chemical equipment controller facility and is working with Care Coordination on placement. PT orders in place. OOB for meals. He is pleasant and cooperative today, seems to have a simplified understanding of his health conditions, and is participating in his care and recovery. Due to his obesity and weakness, he is a great risk for nocturnal hypoxemia. Periodic monitoring of SpO2 overnight every 2-4 hours. Will need a home O2 study completed prior to discharge. Recommend a Sleep Study completed after discharge. Treating his LLE cellulitis with oral doxycycline (risk for Staph) and Florastor; will need to leave his BENNIE stockings off at this time until LLE ankle skin heals. Will monitor for improvement in redness/erythema. Review of Systems Review of Systems: All systems reviewed & are unremarkable except as noted in HPI and below Constitutional: Constitutional: Reports as per HPI, Denies excessive sweating, Reports fatigue, Denies headache(s), Denies increased appetite, Reports lethargy, Denies snoring, Reports weakness and Denies weight gain Eyes: Eyes: Reports as per HPI, Denies exophthalmos, Denies diplopia, Denies floaters and Denies loss of pe
[2020-11-07] MEDS: SACCHAROMYCES BOULARDII 250 MG CAPSULE PO (18:33)
[2020-11-07] MEDS: DOXYCYCLINE HYCLATE 100 MG TABLET PO (21:35)
[2020-11-08 06:00] VITALS: BP 126/74; PULSE 77; RESP 20; TEMP 36.6; O2SAT 95
[2020-11-08 07:17] LABS: Basophils Absolute Auto 0.1 K/mm3 (0.0-0.1); Basophils Percent Auto 1.1 % (0.2-1.2); Eosinophils Absolute Auto 0.4 K/mm3 (0-0.3); Eosinophils Percent Auto 6.6 % (0-4.4); Hematocrit 40.4 % (42.0-52.0); Hemoglobin 13.5 g/dL (14.0-18.0); Immature Granulocyte Absolute 0.04 K/mm3 (0.00-0.031); Immature Granulocyte Percent A 0.6 % (0-0.5); Lymphocytes Absolute Auto 1.71 K/mm3 (0.9-3.2); Lymphocytes Percent Auto 26.3 % (18.3-44.2); Mean Corpuscular HGB Conc 33.4 g/dl (32-36); Mean Corpuscular Hemoglobin 30.5 pg (26-34); Mean Corpuscular Volume 91.2 fl (80-100); Mean Platelet Volume 8.3 fl (7.4-10.4); Monocytes Absolute Auto 0.8 K/mm3 (0.1-0.6); Monocytes Percent Auto 12.9 % (2.6-8.5); Neutrophils Absolute Auto 3.4 K/mm3 (1.3-6.7); Neutrophils Percent Auto 52.5 % (45.5-73.1); Platelet Count Result 466 k/mm3 (150-375); Red Blood Count 4.43 M/mm3 (4.6-6.20); Red Cell Distribution Width 12.7 % (11.5-14.5); White Blood Count 6.5 K/mm3 (4.5-10.0)
[2020-11-08 07:24] LABS: Alanine Aminotransferase 52 U/L (4-50); Albumin Level 3.4 g/dL (3.5-5.1); Alkaline Phosphatase 72 U/L (38-126); Anion Gap 6 mmol/L (8-16); Aspartate Amino Transferase 46 U/L (17-59); Bilirubin,Total 0.4 mg/dL (0.2-1.3); Blood Urea Nitrogen 17 mg/dL (9-20); Calcium 9.1 mg/dL (8.4-10.2); Carbon Dioxide 32 mmol/L (22-30); Chloride 97 mmol/L (98-107); Estimated CRCL calculation 148 ml/min; Estimated Glomerular Filt Rate > 60; Glucose 118 mg/dL (75-110); Potassium 3.8 mmol/L (3.4-5.0); Sodium 135 mmol/L (137-145)
[2020-11-08] MEDS: ENOXAPARIN 40 MG/0.4 ML SYRINGE SUB-Q (10:17)
[2020-11-08] MEDS: SACCHAROMYCES BOULARDII 250 MG CAPSULE PO ×2 (10:18→16:38)
[2020-11-08] MEDS: DOXYCYCLINE HYCLATE 100 MG TABLET PO ×2 (10:18→20:13)
[2020-11-08 14:00] VITALS: BP 134/76; BP 142/73; BP 144/77; PULSE 90; RESP 20; TEMP 36.5; O2SAT 94
--- NOTE | 2020-11-08 14:23 | PM.IMPN ---
Progress Note: A&P Assessment and Plan (1) Generalized weakness: Code(s): R53.1 - Weakness Status: Acute Assessment and Plan: SLOWLY Improving. -failure to thrive and mild dehydration (perhaps chronically) -with progressive weakness, consulting physical therapist to evaluate and treat -patient was unable to take care of himself with home health, this time he will need to be discharged to correction, consulting case management -patient's poor nutrition especially with fast food, consulting dietitian -no home medications on record? -no focal or unitlateral deficits, no CVA s/s, no seizure s/s. (2) Homelessness: Code(s): Z59.0 - Homelessness Status: Acute Assessment and Plan: -was living in his truck, fallen next to truck and unable to get up on his home - laid in parking lot yelling for help, patient needs place to stay likely needs placement in correction as he cannot take care of himself, as EMS has been called 4 times to help him get back up and/or into truck. -patient appears to have Deconditioning, Morbid Obesity, Muscle weakness, possible foot drop and localized Cellulitis of LLE - he needs placement for short term or long-term care -patient needs bathing, teaching of self -care as well - OT and/or Swing Rehab. (3) Thrombocytosis: Code(s): D47.3 - Essential (hemorrhagic) thrombocythemia Status: Acute Assessment and Plan: -patient has history of elevated platelets, 541 and today 466 Hgb 14.5, 13.5 and Hct 43.5, 40.4 no s/s of DVT at this time. Last Venous US was with no DVT. -encourage better oral hydration as patient appears dry on exam and on appearance of dark urine. (4) Cellulitis and abscess of foot: Code(s): L03.119 - Cellulitis of unspecified part of limb; L02.619 - Cutaneous abscess of unspecified foot Status: Acute Assessment and Plan: IMPROVING. superior of LLE / ankle region where his home BENNIE stockings caused pressure/erythema/masseration = Cellulitis. keeping BENNIE stockings off extremities at this time elevating BLE treating with CHRISTIE Foster as patient is awaiting placement to Rehab facility. encouraged better nutrition and increased hydration keep skin clean, dry, and without swelling. teaching patient to remove stockings every night and how to keep folds or overlapping of stocking to occur. (5) Sleep-related breathing disorder: Code(s): G47.30 - Sleep apnea, unspecified Status: Acute Assessment and Plan: NEW FINDING. completed an Apnea Link study overnight, with AHI 18 and RI 21, showing that he had 239 # of desaturations further evidence of pathological breathing disorder. ABG earlier in , on room air, did not show CO2 retention, nor acidosis/alkalosis, only hypoxia, ordered CPAP with autotitration to be applied by RT when patient sleeps at night or with naps. will need a more advanced study after discharge to further determine CPAP settings. Additional Plan Diet: Regular DVT prophylaxis: Lovenox Code status: Full code Disposition: Placement in correction Subjective Date/time seen: 11/08/20 14:23 Patient is feeling better today, more energetic, and ambulated further using walker with PT today. He states that he left foot swelling and pain had been hindering him from walking well, now that it is improving, he feels that he may be able to do well with rehab therapy. His left foot has less swelling today upon examination, less redness/erythema, and overall appears to be improving. Patient reporting less discomfort. We completed an Apnea Link study overnight, with AHI 18 and RI 21, showing that he had 239 # of desaturations, further evidence of pathological breathing disorder. His ABG earlier in , on room air, did not show CO2 retention, nor acidosis/alkalosis, only hypoxia, so ordered CPAP with autotitration to be appied by RT when patient sleeps at night or with naps. He will need a more advanced
[2020-11-08 17:27] VITALS: BP 150/88; PULSE 99; RESP 16; TEMP 36.1; O2SAT 97
[2020-11-08] MEDS: ONDANSETRON INJ 4 MG/2 ML VIAL IV PUSH (18:07)
[2020-11-08 20:00] VITALS: O2SAT 95
[2020-11-08] MEDS: MAG HYDROX/AL HYDROX/SIMETH 30 ML UDC PO (20:13)
[2020-11-08 22:00] VITALS: BP 161/95; PULSE 78; RESP 18; TEMP 36.6; O2SAT 95
[2020-11-09 06:00] VITALS: BP 140/75; PULSE 80; RESP 18; TEMP 36.6; O2SAT 93
[2020-11-09] MEDS: ENOXAPARIN 40 MG/0.4 ML SYRINGE SUB-Q (08:53)
[2020-11-09] MEDS: DOXYCYCLINE HYCLATE 100 MG TABLET PO ×2 (08:53→21:38)
--- NOTE | 2020-11-09 09:57 | PM.IMPN ---
Progress Note: A&P Assessment and Plan (1) Generalized weakness: Code(s): R53.1 - Weakness Status: Acute Assessment and Plan: Improving. -failure to thrive and mild dehydration (perhaps chronically) -with progressive weakness, PT / OT treating. -patient was unable to take care of himself with home health, this time he will need to be discharged to [facility], consulting case management -patient's poor nutrition especially with fast food, consulting dietitian -patient not unable to obtain or safely take his medications independently, unable to follow physician instructions after discharge, lacks mental capacity to schedule necessary testing such as EDUARDO sleep study or follow through on testing. -no focal or unillateral deficits, no CVA s/s, no seizure s/s. (2) Homelessness: Code(s): Z59.0 - Homelessness Status: Acute Assessment and Plan: -was living in his truck, fallen next to truck and unable to get up on his home - laid in parking lot yelling for help, patient needs place to stay likely needs placement in [facility] as he cannot take care of himself, as EMS has been called 4 times to help him get back up and/or into truck. -patient appears to have Deconditioning, Morbid Obesity, Muscle weakness, improving foot drop and localized Cellulitis of LLE - he needs placement for short term or long-term care -patient needs bathing, teaching of self -care as well - OT and/or Swing Rehab. (3) Thrombocytosis: Code(s): D47.3 - Essential (hemorrhagic) thrombocythemia Status: Acute Assessment and Plan: Chronic. -patient has history of elevated platelets, 541 and today 466 Hgb 14.5, 13.5 and Hct 43.5, 40.4 no s/s of DVT at this time. Last Venous US was with no DVT. -encourage better oral hydration as patient appears dry on exam and on appearance of dark urine. (4) Cellulitis and abscess of foot: Code(s): L03.119 - Cellulitis of unspecified part of limb; L02.619 - Cutaneous abscess of unspecified foot Status: Acute Assessment and Plan: IMPROVING. superior of LLE / ankle region where his home BENNIE stockings caused pressure/erythema/masseration = Cellulitis. keeping BENNIE stockings off extremities at this time elevating BLE treating with CHRISTIE Foster as patient is awaiting placement to Rehab facility. encouraged better nutrition and increased hydration keep skin clean, dry, and without swelling. teaching patient to remove stockings every night and how to keep folds or overlapping of stocking to occur. (5) Sleep-related breathing disorder: Code(s): G47.30 - Sleep apnea, unspecified Status: Acute Assessment and Plan: NEW FINDING. completed an Apnea Link study overnight, with AHI 18 and RI 21, showing that he had 239 # of desaturations further evidence of pathological breathing disorder. ABG earlier in , on room air, did not show CO2 retention, nor acidosis/alkalosis, only hypoxia, ordered CPAP with autotitration to be applied by RT when patient sleeps at night or with naps. will need a more advanced study after discharge to further determine CPAP settings. Additional Plan Diet: Regular DVT prophylaxis: Lovenox Code status: Full code Disposition: Placement in [facility] Subjective Date/time seen: 11/09/20 09:57 Luis A stated that he took the probiotic twice yesterday, but felt like he had an allergic reaction to it later in the evening. He felt flushed and had an upset stomach with his 2nd Florastor dose, so I have discontinued it and requested yogurts on his meal trays. Due to that reaction last night, he found it difficult to use the CPAP/Bipap for Sleep apnea. He will need to have assistance with that tonight. He is now feeling better and back to himself. He is improving with PT/OT sessions and his left foot is now without pain and has returned to baseline mobility and ROM. He willl need to use a 2 wheeled walker for all ambulation at dischar
[2020-11-09 14:00] VITALS: BP 117/68; PULSE 102; RESP 18; TEMP 36.8; O2SAT 97
[2020-11-09 14:05] VITALS: BP 136/75
[2020-11-10 05:29] VITALS: BP 110/64; PULSE 75; RESP 18; TEMP 36.3; O2SAT 99
[2020-11-10 08:27] LABS: Hematocrit 41.5 % (42.0-52.0); Hemoglobin 13.8 g/dL (14.0-18.0); Mean Corpuscular HGB Conc 33.3 g/dl (32-36); Mean Corpuscular Hemoglobin 29.9 pg (26-34); Mean Platelet Volume 8.5 fl (7.4-10.4); Platelet Count Result 524 k/mm3 (150-375); Red Blood Count 4.61 M/mm3 (4.6-6.20); Red Cell Distribution Width 12.5 % (11.5-14.5); White Blood Count 7.2 K/mm3 (4.5-10.0)
[2020-11-10 08:42] LABS: Anion Gap 4 mmol/L (8-16); Blood Urea Nitrogen 19 mg/dL (9-20); Carbon Dioxide 31 mmol/L (22-30); Chloride 99 mmol/L (98-107); Estimated CRCL calculation 148 ml/min; Estimated Glomerular Filt Rate > 60; Glucose 119 mg/dL (75-110); Magnesium 2.3 mg/dL (1.6-2.3); Potassium 4.3 mmol/L (3.4-5.0); Sodium 134 mmol/L (137-145)
[2020-11-10] MEDS: DOXYCYCLINE HYCLATE 100 MG TABLET PO (08:58)
[2020-11-10] MEDS: ENOXAPARIN 40 MG/0.4 ML SYRINGE SUB-Q (08:58)
[2020-11-10 10:30] VITALS: BP 113/65; BP 144/80; BP 147/85
--- NOTE | 2020-11-10 11:44 | PM.DS ---
DS: Admitting Diagnosis Admitting Diagnosis Admitting Diagnosis: Generalized weakness, homelessness DS: Discharge Diagnosis Discharge Diagnosis (1) Generalized weakness: Code(s): R53.1 - Weakness Status: Acute Assessment and Plan: Improving. PT/OT evaluations during stay. CC consulted for placement, however no accepting facility at this time due to his previous arrest record. Plan is for discharge home. HH will be set up once he has his tele visit with new PCP on 11/12. F/u with PCP once established. Appt on 11/12 HH once established with PCP (2) Homelessness: Code(s): Z59.0 - Homelessness Status: Acute Assessment and Plan: Patient now can stay with his father in interim. (3) Thrombocytosis: Code(s): D47.3 - Essential (hemorrhagic) thrombocythemia Status: Acute Assessment and Plan: Chronic. 524 today. F/u with PCP. (4) Cellulitis and abscess of foot: Code(s): L03.119 - Cellulitis of unspecified part of limb; L02.619 - Cutaneous abscess of unspecified foot Status: Acute Assessment and Plan: Appears to have improved since initiating doxycycline on 11/07. Will continue doxy through 11/14 morning to finish 7 days total of antibiotic. F/u with PCP Encouraged elevation Keep skin clean, dry. No stockings until this has healed (5) Sleep-related breathing disorder: Code(s): G47.30 - Sleep apnea, unspecified Status: Acute Assessment and Plan: New finding. Apnea Link this stay suggestive of sleep apnea. F/u sleep study once established with PCP DS: Summary Hospital Course Reason for hospitalization: Generalized weakness, left lower extremity cellulitis Hospital Course: Date of arrival: 11/07/20 Date of discharge: 11/10/20 Patient is a 54 year old male with past medical history of morbid obesity and homelessness who presented to the ED on 11/07 with complaints of generalized weakness. Patient was recently admitted/discharged from [facility] on 11/02-11/05 for generalized weakness and elevated troponin; troponins were downtrending and no work up was recommended by the Cardiology group at that time. Plan from that stay was for him to go home with and have outpatient PT; he was unable to be placed in [place] given his arrest record. He was discharged with Cipro for a week which he was noncompliant. Patient admitted under this setting of progressive weakness and unable to care for himself. Please see H&P for further details. Patient was admitted to the hospitalist service for further management/treatment. He was started on Doxycycline on 11/07 for left lower extremity cellulitis which had improved during his hospital stay; this was to continue through morning of 11/14 to complete a week total antibiotics. Patient was evaluated by PT/OT. Unfortunately, CC was unable to place patient again this hospital stay given his arrest record. Plan was then for him to be discharged back home with an establishing telehealth visit with a PCP on 11/12; from there he would be started on HH PT/OT. Patient afebrile throughout stay. Leukocytosis resolved after admission to medical floor. Patient agreeable and comfortable with plan for discharge. Patient hemodynamically stable and in improved condition for discharge on 11/10 Status at Discharge Overall status at discharge: patient is progressing back to baseline Time Spent with Patient Time attestation: Total time spent providing and/or coordinating discharge services: Time spent: Greater than 30 minutes Exam Narrative: Exam Narrative: General: Patient sitting upright in chair in no acute distress. HEENT: Normocephalic, EOMI, oral mucosa moist. Cardiovascular: Rate and rhythm are
[2020-11-10 14:00] VITALS: BP 114/75; PULSE 93; RESP 24; TEMP 36.6; O2SAT 95
[2020-11-10 18:44] LABS: SARS-CoV-2 RNA PCR Negative
== END 2020-11-10 14:59 | disposition home or self-care (01) ==
LOC: ANHED 04:16 → ANH3MEDSUR 05:02
PROVIDERS: Nurse Practitioner; Admitting Provider Student in an Organized Health Care Education/Training Program; Emergency Provider Emergency Medicine; Visit Provider Physician Assistant
DX: E86.0 Dehydration (principal); R53.1 Weakness; Z20.828 Contact with and (suspected) exposure to other viral communicable diseases; L02.612 Cutaneous abscess of left foot; D47.3 Essential (hemorrhagic) thrombocythemia; G47.30 Sleep apnea, unspecified; E66.01 Morbid (severe) obesity due to excess calories; Z23 Encounter for immunization; Z59.0 Homelessness; Z68.39 Body mass index [BMI] 39.0-39.9, adult; Z91.14 Patient's other noncompliance with medication regimen
CPT/HCPCS: 36415; 71045; 80048; 80053; 81001; 83735; 85025; 85027; 85610; 85730; 87086; 87088; 87635; 90471; 90653; 93005; 94762; 96372; 96374; 97110; 97116; 97161; 97165; 97530; 99285; A9270; C9803; G0008; G0378; G0379; J1650; J2405; U0003

== ENCOUNTER 2020-11-13 08:15 | Emergency (ER) | payer BC, SELFPAY ==
--- NOTE | ~2020-11-13 | XR_ITS ---
EXAMINATION: XR chest 2V DATE: 11/13/2020 08:42 INDICATION: Dyspnea with ambulating TECHNIQUE: frontal and lateral views of the chest were obtained. COMPARISON: Chest radiograph dated 11/07/2020 FINDINGS: Unchanged elevation of the left hemidiaphragm. Lungs remain clear with no focal airspace opacities, p ulmonary edema, pleural effusion or pneumothorax. The cardiomediastinal silhouette is within normal l imits for AP technique. Visualized bones and soft tissues are unremarkable. IMPRESSION: 1. No acute cardiopulmonary disease. Reviewed, dictated and finalized at location A. COMMUNICATIONS MANAGER
--- NOTE | 2020-11-13 08:14 | ED.WEAKNESS ---
HPI - Weakness General Chief complaint: Weakness Stated complaint: left leg swelling/weakness Source: patient and EMS Mode of arrival: EMS Limitations: no limitations History of Present Illness HPI Narrative: The patient presents to emergency department from home via EMS for continued weakness. Per EMS [facility] has been contacted, as pt lives in terrible condition, often sitting in his own urine and fecal matter, cannot do any self transfers due to weakness. Pt was discharged home with tele appointment with PCP, which occurred, but patient is not sure if home health was able to be set up even though he requested it. Patient states he was trying to walk to the kitchen today to get a food, was unable to do this due to feeling weak and short of breath. He denies any current shortness of breath or chest pain. He has had access to his doxycycline and has been taking it as prescribed. No recent falls or injuries. No recent worsening calf pain. Wound on his left foot appears to be improving with improved redness and swelling. Related Data Allergies Allergy/AdvReac Type Severity Reaction Status Date / Time steroid Allergy Intermediate FACIAL Uncoded 11/13/20 08:31 FLUSHING; RASH Review of Systems Review of Systems: Narrative: CONSTITUTIONAL: Denies fever, chills, or sweats. ENT: Denies rhinorrhea, congestion, sore throat, or otalgia. CARDIOVASCULAR: Denies chest pain, palpitations, or edema. RESPIRATORY: Denies cough or dyspnea. GASTROINTESTINAL: Denies abdominal pain, nausea, vomiting, or diarrhea. GENITOURINARY: Denies dysuria or hematuria. SKIN: Denies rash or itching. MUSCULOSKELETAL: Denies back pain, joint pain, or myalgia. NEUROLOGIC: Denies headache, reports weakness PMFSH Past Medical History Medical History Homelessness Leg edema Morbid obesity with BMI of 40.0-44.9, adult Surgical History Surgical History History of appendectomy S/P arthroscopic surgery of right knee Family History Family History Father BPH (benign prostatic hyperplasia) Lymph node cancer Hypercholesteremia Mother Diabetes mellitus Hip replacement planned Sibling Colon cancer Sibling No problems noted. Sibling No problems noted. Social History Social History Social History: the patient lives with his 80 year old father could no longer care for him. 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 The patient does not have a durable power transactional attorney for healthcare. The patient is single and has no children. He desires to be a full code. Patient denies ever using any tobacco products. No marijuana or illicit drugs. Smoking status: Never smoker Second hand tobacco smoke exposure: No Alcohol intake: never Substance use: never Substance use type: does not use Additional living arrangements comments: Was living with father however has been primary living in his truck. Gender identity (if verbalized by the patient): Male Spiritual care concerns: No Exam Narrative: Exam Narrative: GENERAL: Awake, alert, conversant, malodorous HEAD: Normocephalic, atraumatic. EYES: PERRLA and EOMI. ENT: Nares clear, no rhinorrhea or epistaxis. Mucous membranes moist. NECK: Supple. CHEST: No respiratory distress, breathing even and non labored HEART: Regular rate, sinus rhythm ABDOMEN:Non distended, non tender EXTREMITIES: Normal range of motion.Chronic lower extremity edema, improving wound LLE, no erythema, no fluctuance, non excoriated SKIN: Warm, dry, no rash. NEURO:No focal deficits. Alert and oriented x3 Course Vital Signs Vital signs: Vital Signs Temperature 36.7 C 11/13/20 08:27 Pulse Rate 83 11/13/20 08:27 Respiratory Rate 24
[2020-11-13 08:27] VITALS: BP 148/86; PULSE 83; RESP 24; TEMP 36.7; O2SAT 96
--- NOTE | 2020-11-13 08:31 | ECG_ITS ---
Measurements Intervals [place] Rate: 82 P: 37 CO: 164 QRS: 22 QRSD: 112 T: 33 QT: 365 QTc: 428 Interpretive Statements SINUS RHYTHM INCOMPLETE RIGHT BUNDLE BRANCH BLOCK CANNOT RULE OUT SEPTAL INFARCT, AGE INDETERMINATE BASELINE ARTIFACT- I, II, III, AVR, AVL, AVF, V1-V2 ABNORMAL ECG Electronically Signed On 11-13-2020 10:01:42 BANK PRESIDENT by Gustavo Kc D.O.
--- NOTE | 2020-11-13 08:35 | PC.NURSE ---
called volunteer services coordinator, León Kyle - for eval of pt. States pt has been denied any placement to any intermediate due to him being a sex offender. Informed Dr William.
[2020-11-13 08:49] VITALS: PULSE 80
[2020-11-13 08:50] VITALS: BP 101/87; PULSE 80; RESP 19; O2SAT 96
[2020-11-13 09:12] LABS: Basophils Absolute Auto 0.1 K/mm3 (0.0-0.1); Basophils Percent Auto 0.9 % (0.2-1.2); Eosinophils Absolute Auto 0.3 K/mm3 (0-0.3); Eosinophils Percent Auto 4.8 % (0-4.4); Hematocrit 41.7 % (42.0-52.0); Hemoglobin 13.9 g/dL (14.0-18.0); Immature Granulocyte Absolute 0.04 K/mm3 (0.00-0.031); Immature Granulocyte Percent A 0.6 % (0-0.5); Lymphocytes Absolute Auto 1.52 K/mm3 (0.9-3.2); Lymphocytes Percent Auto 22.9 % (18.3-44.2); Mean Corpuscular HGB Conc 33.3 g/dl (32-36); Mean Corpuscular Hemoglobin 30.3 pg (26-34); Mean Platelet Volume 8.5 fl (7.4-10.4); Monocytes Percent Auto 15.7 % (2.6-8.5); Neutrophils Absolute Auto 3.7 K/mm3 (1.3-6.7); Neutrophils Percent Auto 55.1 % (45.5-73.1); Platelet Count Result 474 k/mm3 (150-375); Red Blood Count 4.58 M/mm3 (4.6-6.20); White Blood Count 6.6 K/mm3 (4.5-10.0)
[2020-11-13 09:24] LABS: Anion Gap 8 mmol/L (8-16); Blood Urea Nitrogen 18 mg/dL (9-20); Calcium 9.2 mg/dL (8.4-10.2); Carbon Dioxide 27 mmol/L (22-30); Chloride 101 mmol/L (98-107); Creatine Kinase 180 U/L (55-170); Estimated CRCL calculation 150 ml/min; Estimated Glomerular Filt Rate > 60; Glucose 124 mg/dL (75-110); Potassium 3.9 mmol/L (3.4-5.0); Sodium 136 mmol/L (137-145)
[2020-11-13 09:55] VITALS: BP 143/82; PULSE 78; RESP 26; O2SAT 99
--- NOTE | 2020-11-13 10:12 | PC.NURSE ---
Patient states I dont think I am going to be able to get a ride home so I will have to take an ambulance back home. Patient made aware that he may have to cover the cost. Patient states I am ok with that.
[2020-11-13 10:39] VITALS: BP 114/84; PULSE 82; RESP 19; O2SAT 97
--- NOTE | 2020-11-13 10:48 | PCCCNOTE ---
Called to ED by MARQUITA Traore Nanotechnologist, per Dr. William who is seeing pt. I informed her of my knowledge of this patient's home situation from information pt provided during his recent stay, and that [facility] was arranged to see pt this weekend. Call placed to Ner[facility] manager professional development nurse, and she was going to verify pt scheduled admission for the weekend and she will call pt with time of visit on his cell phone. Informed Dr. William that attempts had been made at placing pt in a facility using his [place] medicaid insurance prior to his discharge on 11/10/20 but due to his history of convicted sexual offenses and the limited number of facilities with Medicaid beds,he does not qualify to go to many facilities. I informed Dr. William that [facility] and the [facility] would accept patient but have no bed availability. Pt provided a detailed description of his abilities and home situation and states he plans to try to call friends and problem solve how he can care for himself better. Pt lives with his elderly father who is being treated for cancer and doing poorly at this time who is also followed by [facility] and Adult Protective services. Pt is agreeable to discharge back home today and requested to go home via ambulance due to ability and the icy weather conditions.
== END 2020-11-13 10:40 | disposition home or self-care (01) ==
PROVIDERS: Emergency Provider Emergency Medicine
DX: R53.1 Weakness (principal); I45.10 Unspecified right bundle-branch block; E66.01 Morbid (severe) obesity due to excess calories; Z68.41 Body mass index [BMI] 40.0-44.9, adult
CPT/HCPCS: 36415; 71046; 80048; 82550; 85025; 93005; 99283

== ENCOUNTER 2020-11-19 03:44 | Emergency (ER) | payer BC, SELFPAY ==
--- NOTE | ~2020-11-19 | XR_ITS ---
XR shoulder LT min 2V 11/19/2020 04:36 Indication: Left shoulder pain. Procedure: 4 views left shoulder Comparison: No prior studies for comparison. Findings: No acute fracture or traumatic malalignment. Osteopenia. There is osteoarthritis of the acr omioclavicular joint. Mild degenerative changes of the glenohumeral joint. Impression: 1: No acute bone or joint abnormality. 2: Mild polyarticular osteoarthritis. Reviewed, dictated and finalized at location A. UX DEVELOPER Impression: 1: No acute bone or joint abnormality. 2: Mild polyarticular osteoarthritis.
[2020-11-19 03:44] VITALS: BP 178/107; PULSE 108; RESP 24; TEMP 36.7; O2SAT 96
--- NOTE | 2020-11-19 03:50 | ECG_ITS ---
Measurements Intervals [place] Rate: 104 P: 31 SD: 148 QRS: 5 QRSD: 102 T: 24 QT: 321 QTc: 424 Interpretive Statements SINUS TACHYCARDIA BASELINE ARTIFACT- I, II, III, AVR, AVL, AVF BORDERLINE ECG Electronically Signed On 11-19-2020 7:18:58 ELECTRIC METER INSTALLER by Gustavo Kc D.O.
[2020-11-19] MEDS: IBUPROFEN 600 MG TABLET PO (04:16)
[2020-11-19 04:18] VITALS: BP 148/97; PULSE 102; RESP 18; O2SAT 94
--- NOTE | 2020-11-19 05:31 | ED.GENADULT ---
HPI - General Adult General Chief complaint: Extremity Injury, Upper Stated complaint: shoulder pain x 24 hrs Time Seen by Provider: 11/19/20 03:45 History of Present Illness HPI narrative: Patient is a 54-year-old male who presents ER with left shoulder pain for the last 24 hours. Thinks he slept on it wrong. No known trauma. Has full range of motion but hurts over the deltoid when he performs range of motion. No radiation of the pain. No numbness or tingling. No chest pain or chest pressure. No difficulty breathing. Patient cannot identify aggravating or alleviating factors. Related Data Home Medications Medication Instructions Recorded Confirmed No Home Medications 11/19/20 Allergies Allergy/AdvReac Type Severity Reaction Status Date / Time steroid Allergy Intermediate FACIAL Uncoded 11/19/20 03:50 FLUSHING; RASH Review of Systems Review of Systems: All systems reviewed & are unremarkable except as noted in HPI and below Constitutional: Constitutional: Denies chills, Denies fever(s) and Denies weakness Cardiovascular: Cardiovascular: Denies chest pain and Denies radiating jaw, neck or arm pain Respiratory: Respiratory: Denies cough and Denies dyspnea Musculoskeletal: Musculoskeletal: Reports arthralgias, Denies joint swelling and Denies muscle cramps PMFSH Past Medical History Medical History Homelessness Leg edema Morbid obesity with BMI of 40.0-44.9, adult Surgical History Surgical History History of appendectomy S/P arthroscopic surgery of right knee Family History Family History Father BPH (benign prostatic hyperplasia) Lymph node cancer Hypercholesteremia Mother Diabetes mellitus Hip replacement planned Sibling Colon cancer Sibling No problems noted. Sibling No problems noted. Social History Social History Social History: the patient lives with his 80 year old father could no longer care for him. 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 The patient does not have a durable power attorney general for healthcare. The patient is single and has no children. He desires to be a full code. Patient denies ever using any tobacco products. No marijuana or illicit drugs. Smoking status: Never smoker Second hand tobacco smoke exposure: No Alcohol intake: never Substance use: never Substance use type: does not use Additional living arrangements comments: Was living with father however has been primary living in his truck. Gender identity (if verbalized by the patient): Male Sexual Orientation (if Verbalized by the Patient): Straight or Heterosexual Spiritual care concerns: No Exam Narrative: Exam Narrative: GENERAL: Chronically ill-appearing, obese, and in no acute distress. HEAD: Normocephalic, atraumatic. CHEST: Clear to auscultation. No respiratory distress. HEART: Regular rate and rhythm. Normal peripheral pulses. EXTREMITIES: Normal range of motion and strength of bilateral upper extremities. SKIN: Warm, dry, no rash. NEURO: Alert and oriented x3. PSYCH: Normal mood and affect. Course Course Emergency Course: Unremarkable evaluation. Discharge home. Vital Signs Vital signs: Vital Signs Temperature 98.1 F 11/19/20 03:44 Pulse Rate 108 H 11/19/20 03:44 Respiratory Rate 24 H 11/19/20 03:44 Blood Pressure 178/107 H 11/19/20 03:44 Pulse Oximetry 96 11/19/20 03:44 Temperature 98.1 F 11/19/20 03:44 Pulse Rate 88 11/19/20 05:45 Respiratory Rate 16 11/19/20 05:45 Blood Pressure 143/86 H 11/19/20 05:45 Pulse Oximetry 97 11/19/20 05:45 Medical Decision Making Vital Signs Vital Signs: Vital Signs Temperature 98.1 F 11/19/20 03
[2020-11-19 05:45] VITALS: BP 143/86; PULSE 88; RESP 16; O2SAT 97
--- NOTE | 2020-11-19 06:20 | PC.NURSE ---
called [facility] to request transport. ETA [id number]
[2020-11-19 06:30] VITALS: BP 129/83; PULSE 82; RESP 18; O2SAT 94
[2020-11-19 07:27] VITALS: BP 133/83; PULSE 80; RESP 12; O2SAT 94
== END 2020-11-19 07:48 | disposition home or self-care (01) ==
PROVIDERS: Emergency Provider Emergency Medicine; PCP Physician Assistant
DX: M25.512 Pain in left shoulder (principal); E66.01 Morbid (severe) obesity due to excess calories; Z68.39 Body mass index [BMI] 39.0-39.9, adult
CPT/HCPCS: 73030; 93005; 99283; A9270

== ENCOUNTER 2020-12-01 13:41 | Inpatient (IN) | payer BC, SELFPAY ==
[2020-12-01] VITALS (28 sets, daily range): BP systolic 128–142; BP diastolic 77–86; PULSE 102–135; RESP 16–40; TEMP 36.2–36.5; O2SAT 90–97; BMI 38.7
--- NOTE | ~2020-12-01 | CT_ITS ---
EXAMINATION: CTA chest PE abdomen pel DATE: 12/02/2020 14:58 INDICATION: Cardiac arrest. Assess for pulmonary embolism. TECHNIQUE: Computed tomography (CT) pulmonary angiogram of the chest was performed with 100 mL Omnipa que-350 intravenous contrast. Additional 3D reconstructions utilizing coronal maximum intensity proje ction (MIP) were performed. CT of the abdomen and pelvis was performed with intravenous contrast util izing the same contrast bolus following a short delay. Automated exposure control and iterative recon struction technique were employed. The dose-length product was 2403.12 mGy-cm. COMPARISON: None FINDINGS: Chest: Excellent contrast opacification of the pulmonary arteries. There is moderate streak artifact from de nse contrast in the superior vena cava and right atrium. Mild to moderate scattered respiratory motio n artifact. Extensive ulnar embolism which extends into each of the lobar and multiple subsegmental a nd subsegmental pulmonary arteries throughout both lungs. The sulci includes a saddle embolism extend ing between the left main pulmonary artery where it is only partially occlusive as well as into the r ight main pulmonary artery where it appears near occlusive with only minimal contrast extending along the anterior and posterior periphery of the thrombus. There is enlargement of the main left and righ t main pulmonary arteries consistent with pulmonary arterial hypertension. There is also right ventri cular enlargement with leftward bowing of the ventricular septum consistent with right heart strain. Small left pleural effusion. Dependent atelectasis in the bilateral lower lobes, left greater than ri ght. Endotracheal tube tip 5.1 cm above the isabel. Aside from the left ventricular enlargement, the overall heart size remains within normal limits. Thoracic aorta is normal in caliber with no dissecti on. No pathologically enlarged thoracic lymphadenopathy. Abdomen/pelvis: Nasogastric tube tip in the body of the stomach. Liver, gallbladder, spleen, pancreas, bilateral adre nal glands are normal. Severe right renal atrophy. 2.3 cm left renal cyst. 2.7 cm long staghorn calcu ibrahima extending from the left renal pelvis into the infundibulum of an inferior calyx of the left kidne y. Appendix is not visualized with suture line near the tip of the cecum consistent with likely prior appendectomy. No abnormal bowel wall thickening or obstruction. Agustin catheter in the partially deco mpressed bladder. No free intraperitoneal gas or fluid. No pathologically enlarged abdominal or pelvi c lymphadenopathy. Moderate spondylosis at the lumbosacral junction with mild spondylosis in the more cephalad lumbar and lower thoracic spine. IMPRESSION: 1. Extensive bilateral pulmonary emboli including large saddle embolism with secondary pulmonary ashley rial hypertension and right heart strain. Findings were discussed with Nida Mendoza, the nurse johanny maria for the patient, at 3:10 PM. 2. Nonobstructing left staghorn calculus at the lower pole of the left kidney. 3. Small left pleural effusion. Reviewed, dictated and finalized at location A. MARKER IMPRESSION: 1. Extensive bilateral pulmonary emboli including large saddle embolism with se condary pulmonary arterial hypertension and right heart strain. Findings were d iscussed with Nida Mendoza, the nurse caring for the patient, at 3:10 PM. 2. Nonobstructing left staghorn calculus at the lower pole of the left kidney. 3. Small left pleural effusion.
--- NOTE | ~2020-12-01 | XR_ITS ---
EXAMINATION: XR chest ET placement EXAM DATE: 12/02/2020 11:21 INDICATION: After intubation to confirm ET placement . TECHNIQUE: Portable AP frontal chest x-ray was obtained. Comparison is made to prior examination from 12/01/2020. FINDINGS: Endotracheal tube tip is 3-4 centimeters above the isabel. There is left infrahilar airspace disease at least partly atelectasis. Additional infarction or infec tion not excludable. There are no sizable pleural effusions. There is no pneumothorax suspected. The cardiomediastinal silhouette is prominent but magnified on this AP technique. The bones and so ft tissues are unremarkable. Mild progression left basilar airspace disease compared to prior study. IMPRESSION: 1. Endotracheal tube in position. 2. Subsegmental left basilar atelectasis, possibly superimposed infection or infarction. Reviewed, dictated and finalized at location A. RITY SYSTEM ENGINEER IMPRESSION: 1. Endotracheal tube in position. 2. Subsegmental left basilar atelectasis, possibly superimposed infection or i nfarction.
--- NOTE | ~2020-12-01 | XR_ITS ---
EXAMINATION: XR chest 2V DATE: 12/01/2020 14:05 INDICATION: Weakness. TECHNIQUE: Frontal and lateral views of the chest were obtained. COMPARISON: Chest 2 views 11/13/2020, chest CT 11/01/2020 FINDINGS: There is mild atelectasis in left lower lung zone. No pleural effusion or pneumothorax. The heart size is normal. IMPRESSION: 1. Mild atelectasis in left lower lung zone. Reviewed, dictated and finalized at location B. NG COILER HAND
--- NOTE | ~2020-12-01 | CT_ITS ---
EXAMINATION: CT brain wo con DATE: 12/02/2020 14:58 INDICATION: Cardiac arrest. TECHNIQUE: Computed tomography (CT) of the head was performed without intravenous contrast. The mA wa s adjusted according to patient size. Iterative reconstruction technique was employed. The dose-lengt h product was 756.67 mGy-cm. COMPARISON: Head CT 07/14/2020 FINDINGS: There is no intracranial hemorrhage, acute infarction, or abnormal intracranial mass lesion . The ventricles are normal in size. The paranasal sinuses are clear. The orbits are normal. The mast oid air cells are normal. IMPRESSION: 1. Normal brain. Reviewed, dictated and finalized at location B. ES 1 THRU 6 HOME TEACHER IMPRESSION: 1. Normal brain.
--- NOTE | ~2020-12-01 | XR_ITS ---
EXAMINATION: XR abdomen NG/feed tube insert DATE: 12/02/2020 11:22 INDICATION: Orogastric tube placement. TECHNIQUE: A supine view of the abdomen was obtained. COMPARISON: None. FINDINGS: The lower abdomen is excluded. The nasogastric tube tip is in the stomach. IMPRESSION: 1. Nasogastric tube tip in the stomach. Reviewed, dictated and finalized at location B. RD CHANGER ASSEMBLER
--- NOTE | ~2020-12-01 | US_ITS ---
EXAMINATION: US venous doppler [facility] DATE: 12/02/2020 14:05 INDICATION: Lower limb swelling TECHNIQUE: Grayscale ultrasound images without and with compression and Doppler ultrasound images of the bilateral lower extremity veins were obtained. COMPARISON: None. FINDINGS: Noncompressible occlusive appearing deep venous thrombosis in the right femoral vein, popliteal vein, posterior tibial veins and peroneal veins at the calf. The visualized portions of right common femor al vein, profunda (deep) femoral vein and greater saphenous vein outflow are patent. Noncompressible occlusive appearing deep venous thrombosis in the left femoral vein, popliteal vein, gastrocnemius vein, posterior tibial veins and peroneal veins. The visualized portions of left common femoral vein, profunda femoral vein and greater saphenous vein outflow are patent. IMPRESSION: 1. Extensive above and [id number] deep venous thrombosis at both lower limbs extending from the proximal bilateral femoral veins through the posterior tibial and peroneal veins at the left and righ t calves. Findings were discussed with Alyssa Domínguez, the nurse caring for the patient, at 2:10 PM. Reviewed, dictated and finalized at location A. OTIONAL MODEL IMPRESSION: 1. Extensive above and [id number] deep venous thrombosis at both lower jovel bs extending from the proximal bilateral femoral veins through the posterior ti bial and peroneal veins at the left and right calves. Findings were discussed w davion Domínguez, the nurse caring for the patient, at 2:10 PM.
--- NOTE | 2020-12-01 13:46 | ECG_ITS ---
Measurements Intervals [place] Rate: 103 P: 41 CT: 138 QRS: 24 QRSD: 102 T: 35 QT: 333 QTc: 436 Interpretive Statements SINUS TACHYCARDIA EARLY PRECORDIAL R/S TRANSITION BORDERLINE ST-T WAVE ABNORMALITY- INF/HIGH LAT LEADS BASELINE ARTIFACT- I, II, AVR, AVL, AVF, V6 BORDERLINE ECG Electronically Signed On 12-01-2020 13:55:58 CAMPAIGN MANAGER by Gustavo Kc D.O.
--- NOTE | 2020-12-01 13:55 | PC.NURSE ---
Unable to get labs from pt in triage.
[2020-12-01 15:45] LABS: Add Urine Microscopic? YES; Appearance Urine Clear (Clear); Bacteria Urine Trace /hpf; Bilirubin Urine Negative (Negative); Blood Urine Negative (Negative); Color Urine Yellow (Yellow); Glucose Urine UA Negative (Negative); Ketones Urine Negative (Negative); Leukocyte Esterase Ur Negative LEU/UL (Negative); Mucus Urine Few /lpf; Nitrate Urine Negative (Negative); Protein Urine Negative (Negative); Squamous Epithelial Cell Urine Rare /hpf (Few); WBC Urine 0-3 /hpf
--- NOTE | 2020-12-01 16:13 | ED.WEAKNESS ---
HPI - Weakness General Chief complaint: Weakness Stated complaint: trouble walking Time Seen by Provider: 12/01/20 14:44 History of Present Illness HPI Narrative: Patient is a 54-year-old male who presents ER with generalized weakness and lower extremity swelling. Patient has become progressively weak over the last couple of weeks. Reports he has been unable to get himself up and so he pays my come in to bring him food and beverages. He is covered in his own feces. Denies fevers or chills or sweats. No recent falls or injury. Recently has not been able to get into care center but previously had been able to walk. Related Data Home Medications Medication Instructions Recorded Confirmed No Home Medications 11/19/20 Allergies Allergy/AdvReac Type Severity Reaction Status Date / Time steroid Allergy Intermediate FACIAL Uncoded 12/01/20 15:27 FLUSHING; RASH Review of Systems Review of Systems: All systems reviewed & are unremarkable except as noted in HPI and below Constitutional: Constitutional: Denies chills, Denies fever(s) and Reports weakness ENT: Denies nasal congestion and Denies sore throat Cardiovascular: Cardiovascular: Denies chest pain and Denies radiating jaw, neck or arm pain Respiratory: Respiratory: Denies cough, Denies dyspnea and Denies wheezing Gastrointestinal: Gastrointestinal: Denies abdominal pain, Reports diarrhea, Denies nausea and Denies vomiting Genitourinary: Genitourinary: Denies hematuria, Denies dysuria and Denies urinary frequency PMFSH Past Medical History Medical History Homelessness Leg edema Morbid obesity with BMI of 40.0-44.9, adult Surgical History Surgical History History of appendectomy S/P arthroscopic surgery of right knee Family History Family History Father BPH (benign prostatic hyperplasia) Lymph node cancer Hypercholesteremia Mother Diabetes mellitus Hip replacement planned Sibling Colon cancer Sibling No problems noted. Sibling No problems noted. Social History Social History Social History: the patient lives with his 80 year old father could no longer care for him. 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 The patient does not have a durable power securities attorney for healthcare. The patient is single and has no children. He desires to be a full code. Patient denies ever using any tobacco products. No marijuana or illicit drugs. Smoking status: Never smoker Second hand tobacco smoke exposure: No Alcohol intake: never Substance use: never Substance use type: does not use Additional living arrangements comments: Was living with father however has been primary living in his truck. Gender identity (if verbalized by the patient): Male Spiritual care concerns: No Exam Narrative: Exam Narrative: GENERAL: Chronically ill-appearing, morbidly obese, and in no acute distress. HEAD: Normocephalic, atraumatic. CHEST: Clear to auscultation. No respiratory distress. HEART: Regular rate and rhythm. Normal peripheral pulses. ABDOMEN: Soft, nontender, nondistended EXTREMITIES: Normal range of motion. 2+ edema. SKIN: Warm, dry, no rash. Sloughing scab to the left ankle crease. NEURO: Alert and oriented x3. PSYCH: Normal mood and affect. Course Course Emergency Course: Admit for observation due to increased immobility. Care coordination contacted and they are reaching out to multiple places in the state that may be able to care for this patient long-term. She has contacted home health who report that he has been on their ability to care for him at this point. Patient has no additional complaints this time. He has been cleaned up and has had no
--- NOTE | 2020-12-01 17:13 | PC.NURSE ---
iv started by ed physician after multiple attempts by multiple ed staff. site initiated using ultrasound
[2020-12-01 17:14] LABS: Basophils Absolute Auto 0.1 K/mm3 (0.0-0.1); Basophils Percent Auto 0.4 % (0.2-1.2); Eosinophils Absolute Auto 0.3 K/mm3 (0-0.3); Eosinophils Percent Auto 2.1 % (0-4.4); Hematocrit 41.7 % (42.0-52.0); Hemoglobin 13.8 g/dL (14.0-18.0); Immature Granulocyte Percent A 0.7 % (0-0.5); Lymphocytes Absolute Auto 1.65 K/mm3 (0.9-3.2); Lymphocytes Percent Auto 11.2 % (18.3-44.2); Mean Corpuscular HGB Conc 33.1 g/dl (32-36); Mean Corpuscular Hemoglobin 29.6 pg (26-34); Mean Corpuscular Volume 89.3 fl (80-100); Mean Platelet Volume 8.3 fl (7.4-10.4); Monocytes Absolute Auto 1.4 K/mm3 (0.1-0.6); Monocytes Percent Auto 9.2 % (2.6-8.5); Neutrophils Absolute Auto 11.3 K/mm3 (1.3-6.7); Neutrophils Percent Auto 76.4 % (45.5-73.1); Platelet Count Result 285 k/mm3 (150-375); Red Blood Count 4.67 M/mm3 (4.6-6.20); Red Cell Distribution Width 13.3 % (11.5-14.5); White Blood Count 14.8 K/mm3 (4.5-10.0)
[2020-12-01 17:28] LABS: Alanine Aminotransferase 42 U/L (4-50); Albumin Level 3.6 g/dL (3.5-5.1); Alkaline Phosphatase 94 U/L (38-126); Anion Gap 6 mmol/L (8-16); Aspartate Amino Transferase 36 U/L (17-59); Bilirubin,Total 0.9 mg/dL (0.2-1.3); Blood Urea Nitrogen 12 mg/dL (9-20); Calcium 9.1 mg/dL (8.4-10.2); Carbon Dioxide 30 mmol/L (22-30); Chloride 98 mmol/L (98-107); Estimated CRCL calculation 196 ml/min; Estimated Glomerular Filt Rate > 60; Glucose 115 mg/dL (75-110); Potassium 4.2 mmol/L (3.4-5.0); Sodium 134 mmol/L (137-145)
[2020-12-01 18:19] LABS: Creatine Kinase 81 U/L (55-170)
--- NOTE | 2020-12-01 19:08 | PCCCNOTE ---
Pt unable to care for self at home and has inadequate resources to assist him. He is no longer safe to live at home without assistance. Spoke bonita Graf from [facility], pt is also no longer appropriate for Home Health services. Extensive attempt to find a SNF that will accept the patient due to being a registered sex offender. Please reach out again to the following facilities in the morning as they did not have an pacs administrator medication tech [facility] [phone], [facility] [phone], [facility] [phone], [facility] [phone], [phone] Facilities that were NOT able to take patient duet to his past include [facility], [facility] [place], [facility], [facility], [facility], [facility], [facility] , [facility], [facility], [facility], [facility] Message left for Odessa Patel (rep from [facility]) at [phone] Chart faxed to [facility] in [place]. They may be able to accept patient tomorrow but need to run a background check on the patient first
--- NOTE | 2020-12-01 19:15 | PC.NURSE ---
received report from Flavia JUÁREZ. patient resting on stretcher. has bed assigned upstairs. SBAR has been sent. will attempt to call report shortly. no change in overall condition.
--- NOTE | 2020-12-01 19:46 | PC.NURSE ---
report called to 2nd floor. will transfer patient to [facility].
--- NOTE | 2020-12-01 20:09 | ADMGEN ---
This patient, Luis A Crow, was admitted to 2 Medical Room 251-. Patient/family oriented to hospital policies and general routines including ID bracelet, bed and alarms, visiting hours, pain management, procedures, bathroom and other care routines, personal items, smoking policy, room service/diet, and visiting hours. Information on how to activate the Rapid Response Team has been discussed. Patient/Family are encouraged to report perceived risks to care and to ask questions if they do not understand what they are told or what they should do.
--- NOTE | 2020-12-01 21:35 | PM.IMHP ---
H&P: HPI History of Present Illness Date/Time: 12/01/20 21:35 Chief Complaint: Generalized weakness Narrative: Luis A Crow is a 54 year old male has been admitted to us multiple times for cellulitis of the lower extremities he has chronic edema to his lower extremities. It was reported that the patient is homeless but the patient tells me that he lives with his 80-year-old father. The patient states that he has PT and OT coming to his house twice a week. To the emergency room with complaints of generalized weakness and lower extremity swelling. The patient stated he that he is getting weaker over the last couple weeks. He is unable to get himself and keep a somebody to come over bring him food and beverages. The patient was covered in his own feces. He does have a scab to the left ankle which is healing from his last admission. Was last discharged from here on 11/10/2020. He had PT and OT evaluation during his stay. clinical trials data coordinator was consulted for placement but there was no accepting facility at the time due to his previous arrest record for being a sex offender. Patient was also found have apnea link study while he was here and was suggestive of sleep apnea. The patient was supposed to get a sleep study once he establish with primary care doctor. Atelectasis in the left lower lung zones. H&H stable. Platelets were normal. The patient was swabbed for COVID for possible placement. Date of service of 12/01/2020 Review of Systems Review of Systems: All systems reviewed & are unremarkable except as noted in HPI and below Constitutional: Constitutional: Reports as per HPI and Reports no additional constitutional complaints Eyes: Eyes: Reports as per HPI and Reports no additional eye complaints ENT: Reports system reviewed and no additional complaints, except as documented and Reports Normal hearing present Cardiovascular: Cardiovascular: Reports no additional cardiovascular complaints Respiratory: Respiratory: Reports no additional respiratory complaints and Reports no additional respiratory complaints Gastrointestinal: Gastrointestinal: Reports as per HPI and Reports no additional gastrointestinal complaints Musculoskeletal: Musculoskeletal: Reports no additional musculoskeletal complaints Integumentary/Breasts: Skin/Breast: Reports system reviewed and no additional complaints, except as docu and Reports as per HPI Neurologic: Reports system reviewed and no additional complaints, except as documented, Reports as per HPI and Reports Normal hearing present Psychiatric: Psychiatric: Reports no additional psychiatric complaints and Reports as per HPI Endocrine: Endocrine: Reports no additional endocrine complaints Hematologic/Lymphatic: Hematologic/Lymphatic: Reports no additional hematologic/lymphatic complaints Allergic/Immunologic: Allergic/Immunologic: Reports no additional allergic/immunologic complaints [facility] Past Medical History Medical History (Updated 12/01/20 @ 21:42 by Luz Messina NP) Abscess left back Cellulitis and abscess of foot Elevated troponin Leg edema Morbid obesity with BMI of 40.0-44.9, adult Sexually offensive behavior Thrombocytosis Surgical History Surgical History History of appendectomy S/P arthroscopic surgery of right knee Family History Family History Father BPH (benign prostatic hyperplasia) Lymph node cancer Hypercholesteremia Mother Diabetes mellitus Hip replacement planned Sibling Colon cancer Sibling No problems noted. Sibling No problems noted. Social History Social History (Updated 12/01/20 @ 21:47 by Luz Messina NP) Social History: the patient lives with his 80 year old father could no longer care for him. 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 The patient does not have a durable power trademark attorney for healthcare. The jayleen
[2020-12-01] MEDS: ENOXAPARIN 40 MG/0.4 ML SYRINGE SUB-Q (21:56)
[2020-12-02] VITALS (7 sets, daily range): BP systolic 99–125; BP diastolic 67–84; PULSE 87–113; RESP 12–23; TEMP 36.4–36.9; O2SAT 93–100; BMI 38.7
--- NOTE | 2020-12-02 | ECHO_ITS ---
Patient Info Name: Luis A Crow Age: 54 years : 1965 Gender: Male Ht: 72 in Wt: 285 lbs BSA: 2.61 m2 HR: 78 bpm BP: 120 / 81 mmHg Heart Rhythm: Sinus Rhythm Technical Quality: Poor Exam Date: 12/02/2020 3:10 PM Exam Location: [facility] Pulmonary Exam Room: icu 7 Patient Status: Inpatient Admit Date: 12/02/2020 Staff Ordering Physician: Rebecca Kenyon PA-C Senior Product Development Manager: Shira Simmons RDCS Attending Provider: Rebecca Kenyon PA-C Exam Type: CA echo dop color flow w con Study Info Indications - cardiac arrest Complete two-dimensional, color flow and Doppler transthoracic echocardiogram is performed with contrast to opacify the left ventricle and to improve the deliniation of the left ventricle endocardial borders. Contrast/Agitated Saline Contrast/Ag. Saline: Definity Amount: 1.00 ml Administered By: Nevin Ramires RN Reason for Poor Study: patient body habitus Summary 1. There is moderate tricuspid valve regurgitation. 2. Moderate pulmonary hypertension, estimated pulmonary arterial systolic pressure is 55 mmHg. 3. Left ventricular systolic function is normal, estimated at 55-60% (calculated 56%), with hypokinesis of the distal septum. There is mild LVH and grade 1 diastolic dysfunction. Normal left ventricular size. 4. Normal sinus rhythm. Left Ventricle Left ventricular systolic function is normal, estimated at 55-60% (calculated 56%), with hypokinesis of the distal septum. There is mild LVH and grade 1 diastolic dysfunction. Normal left ventricular size. Left ventricular chamber dimension is normal. There is mildly increased left ventricular wall thickness. Left ventricular septal wall motion is normal. The left ventricular diastolic function is grade I diastolic dysfunction. Right Ventricle Right ventricular chamber dimension is normal. Right ventricular systolic function is normal. Left Atria Left atrial chamber dimension is normal. Right Atria Right atrial chamber dimension is normal. Aortic Valve The aortic valve is trileaflet. There is no aortic valve sclerosis. There is no aortic valve stenosis. There is no aortic valve regurgitation. Pulmonic Valve The pulmonic valve is normal. There is no pulmonic valve stenosis. There is no pulmonic regurgitation. Mitral Valve The mitral valve has normal leaflets. There is no mitral valve stenosis. There is no mitral valve regurgitation. Tricuspid Valve The tricuspid valve leaflets are normal. There is no significant tricuspid valve stenosis. There is moderate tricuspid valve regurgitation. Moderate pulmonary hypertension, estimated pulmonary arterial systolic pressure is 55 mmHg. Pericardium/Pleural The pericardium appears normal. There is no pericardial effusion. Inferior Vena Cava Normal inferior vena cava with >50% collapse upon inspiration consistent with Empty right atrial pressure, 10 mmHg. Aorta The aortic root size at the sinus of Valsalva is normal. The prox ascending aorta size is normal. Left Ventricular Outflow Tract Name Value Normal LVOT 2D LVOT Diameter 2.14 cm LVOT Doppler
[2020-12-02] MEDS: ACETAMINOPHEN 325 MG TABLET 650 MG PO (01:42)
[2020-12-02 05:37] LABS: Basophils Absolute Auto 0.1 K/mm3 (0.0-0.1); Basophils Percent Auto 0.5 % (0.2-1.2); Eosinophils Absolute Auto 0.3 K/mm3 (0-0.3); Eosinophils Percent Auto 2.3 % (0-4.4); Hematocrit 42.2 % (42.0-52.0); Hemoglobin 13.6 g/dL (14.0-18.0); Immature Granulocyte Absolute 0.11 K/mm3 (0.00-0.031); Immature Granulocyte Percent A 0.9 % (0-0.5); Lymphocytes Absolute Auto 1.87 K/mm3 (0.9-3.2); Lymphocytes Percent Auto 15.1 % (18.3-44.2); Mean Corpuscular HGB Conc 32.2 g/dl (32-36); Mean Corpuscular Hemoglobin 29.5 pg (26-34); Mean Corpuscular Volume 91.5 fl (80-100); Mean Platelet Volume 8.5 fl (7.4-10.4); Monocytes Absolute Auto 1.4 K/mm3 (0.1-0.6); Monocytes Percent Auto 11.5 % (2.6-8.5); Neutrophils Absolute Auto 8.6 K/mm3 (1.3-6.7); Neutrophils Percent Auto 69.7 % (45.5-73.1); Platelet Count Result 249 k/mm3 (150-375); Red Blood Count 4.61 M/mm3 (4.6-6.20); Red Cell Distribution Width 13.3 % (11.5-14.5); White Blood Count 12.4 K/mm3 (4.5-10.0)
[2020-12-02 05:55] LABS: Alanine Aminotransferase 41 U/L (4-50); Albumin Level 3.4 g/dL (3.5-5.1); Alkaline Phosphatase 94 U/L (38-126); Anion Gap 5 mmol/L (8-16); Aspartate Amino Transferase 34 U/L (17-59); Bilirubin,Total 0.8 mg/dL (0.2-1.3); Blood Urea Nitrogen 12 mg/dL (9-20); Carbon Dioxide 31 mmol/L (22-30); Chloride 99 mmol/L (98-107); Estimated CRCL calculation 168 ml/min; Estimated Glomerular Filt Rate > 60; Glucose 116 mg/dL (75-110); Magnesium 1.5 mg/dL (1.6-2.3); Potassium 3.9 mmol/L (3.4-5.0); Sodium 135 mmol/L (137-145)
[2020-12-02 06:37] LABS: Thyroid Stimulating Hormone Reflex 0.883 uIU/mL (0.465-4.68)
[2020-12-02] MEDS: MAGNESIUM SULF 2 GM/WATER 50ML 2 GM/50 ML BAG IVPB (08:24)
[2020-12-02] MEDS: HYDROcodone/acetaminophen (*CRX) 5-325 MG TABLET 1 TAB PO (08:30)
--- NOTE | 2020-12-02 10:53 | ECG_ITS ---
Measurements Intervals [place] Rate: 111 P: 78 [place]: 178 QRS: 66 QRSD: 118 T: 0 QT: 335 QTc: 456 Interpretive Statements SINUS TACHYCARDIA INCOMPLETE RIGHT BUNDLE BRANCH BLOCK CANNOT RULE OUT SEPTAL INFARCT, AGE INDETERMINATE BORDERLINE ST-T WAVE ABNORMALITY- INF/LAT LEADS ABNORMAL ECG Electronically Signed On 12-02-2020 14:08:05 GARAGE HELPER by Gustavo Kc D.O.
[2020-12-02 11:20] LABS: Basophils Absolute Auto 0.1 K/mm3 (0.0-0.1); Basophils Percent Auto 0.6 % (0.2-1.2); Eosinophils Absolute Auto 0.3 K/mm3 (0-0.3); Eosinophils Percent Auto 1.7 % (0-4.4); Hematocrit 41.9 % (42.0-52.0); Hemoglobin 13.6 g/dL (14.0-18.0); Immature Granulocyte Absolute 0.35 K/mm3 (0.00-0.031); Immature Granulocyte Percent A 2.4 % (0-0.5); Lymphocytes Absolute Auto 3.34 K/mm3 (0.9-3.2); Lymphocytes Percent Auto 22.6 % (18.3-44.2); Mean Corpuscular HGB Conc 32.5 g/dl (32-36); Mean Corpuscular Hemoglobin 30.1 pg (26-34); Mean Corpuscular Volume 92.7 fl (80-100); Mean Platelet Volume 8.8 fl (7.4-10.4); Monocytes Absolute Auto 1.1 K/mm3 (0.1-0.6); Monocytes Percent Auto 7.2 % (2.6-8.5); Neutrophils Absolute Auto 9.7 K/mm3 (1.3-6.7); Neutrophils Percent Auto 65.5 % (45.5-73.1); Platelet Count Result 299 k/mm3 (150-375); Red Blood Count 4.52 M/mm3 (4.6-6.20); Red Cell Distribution Width 13.3 % (11.5-14.5); White Blood Count 14.8 K/mm3 (4.5-10.0)
--- NOTE | 2020-12-02 11:25 | PDCODEBLUE ---
Code Blue Note Code Blue Note Time Arrived at Code Blue: 1046 Initial Rhythm on Arrival: Asystole Airway Management: Pt intubated during resuscitation Chest Compressions: In process on arrival to bedside Result of Code Blue: Pt transferred to ICU Cardiac Rhythm Post Code: Sinus tachycardia Code Blue Summary: Patient was asystole upon arrival to the room, his chest compressions already been initiated ACLS protocol. Patient is getting bag-mask ventilation. Patient received 3 rounds of chest compressions with 1 epinephrine, sodium bicarb drip, 1 amp of D50, 4 g of magnesium. Patient was successfully intubated at 11:00am. ROSC within 5 minutes, initially sinus but converted to sinus tachycardia in the 110-120s. Patient was transferred to the ICU for further management
[2020-12-02 11:30] LABS: Ammonia 20 umol/L (9-30)
--- NOTE | 2020-12-02 11:31 | PM.IMPN ---
Progress Note: A&P Assessment and Plan (1) Cardiac arrest: Code(s): I46.9 - Cardiac arrest, cause unspecified Status: Acute Assessment and Plan: Patient had a cardiac arrest and was resuscitated successfully and now has a pulse and is intubated in the ICU -etiology unclear at this juncture -patient has been having swelling in his lower extremities and weakness in the past week. He also had a viral illness about a week ago. Consider ACS/CHF although lungs were clear and chest x-ray was normal. Troponin pending -consider PE as his lower extremities were swollen, although he was not on oxygen. Doppler ordered -patient had a slight leukocytosis, consider infection. Will add blood cultures and stool cx. UA and CXR show no infection -COVID? CXR normal. PCR pending -Other viral illness-patient had diarrhea and stomach cramps for the last week. Will order stool cultures. Pt had abx last month. will send for c-diff -Pt was having a BM when he lost a pulsed. Could have vageled down. (2) Ambulatory dysfunction: Code(s): R26.2 - Difficulty in walking, not elsewhere classified Status: Acute Assessment and Plan: He has been getting increasingly weak especially after his illness last week as stated above -continue PT and OT -patient would benefit from SNF placement (3) Unable to care for self: Code(s): Z78.9 - Other specified health status Status: Acute Assessment and Plan: Patient lives with his father again. He is not taking care of himself and was very unkempt. -will need SNF placement if possible (4) Person under investigation for COVID-19: Code(s): Z20.822 - Contact with and (suspected) exposure to COVID-19 Status: Acute Assessment and Plan: Patient is not on isolation currently and this was routinely done for placement -he did have a viral illness last week, although no congestion, respiratory issues or fever (5) Sleep-related breathing disorder: Code(s): G47.30 - Sleep apnea, unspecified Status: Acute Assessment and Plan: Will need outpatient sleep study to obtain CPAP (6) Morbid obesity with BMI of 40.0-44.9, adult: Code(s): E66.01 - Morbid (severe) obesity due to excess calories; Z68.41 - Body mass index [BMI]40.0-44.9, adult Status: Acute Assessment and Plan: Patient would benefit from weight loss (7) Generalized weakness: Code(s): R53.1 - Weakness Status: Acute Assessment and Plan: As above Additional Plan Plan discussed with supervising physician Dr. Martino and ICU doctor. He is being transferred to the ICU for further evaluation and monitoring Time Spent With Patient Time with patient: 25 - 35 minutes Subjective Date/time seen: 12/02/20 11:31 Interval history: Pt is a 54-year-old male here for weakness. Patient was seen initially and was doing well. He had no complaints other than weakness. He states he has not been moving around his house very much because he was sick for the last week. He has had some stomach pain, diarrhea and nausea all last week which all have resolved except for the weakness. He was weak at baseline any thinks this illness worsened it. While he was sick, he had no cough, fever, congestion, or loss of smell or taste. He did not get tested for flu or COVID. No one was sick around him. Today he states the diarrhea has resolved. He denies chest pain or shortness of breath. He states his legs have been swelling intermittently since Monday. About 20 minutes after my visit, the patient lost a pulse while having a bowel movement. Review of Systems Review of Systems: All systems reviewed & are unremarkable except as noted in HPI and below Exam Narrative: Exam Narrative: Initial exam: General: Well developed well nourished patient in NAD HEENT: normocephalic Neck: supple Neuro: Alert and oriented x4 CV:RRR Re
[2020-12-02 11:34] LABS: Lactic Acid Reflex 4.8 mmol/L (0.7-2.1)
[2020-12-02] MEDS: FENTANYL 2,500MCG/NS250ML(*CRX 2,500 MCG/250 ML BAG IV CONT (11:34)
[2020-12-02 11:35] LABS: Albumin Level 3.2 g/dL (3.5-5.1); Alkaline Phosphatase 106 U/L (38-126); Anion Gap 10 mmol/L (8-16); Aspartate Amino Transferase 91 U/L (17-59); Blood Urea Nitrogen 12 mg/dL (9-20); CRP 7.8 mg/dL (<1.0); Calcium 8.5 mg/dL (8.4-10.2); Carbon Dioxide 23 mmol/L (22-30); Chloride 99 mmol/L (98-107); Estimated CRCL calculation 168 ml/min; Estimated Glomerular Filt Rate > 60; Glucose 296 mg/dL (75-110); Lactate Dehydrogenase 1028 U/L (313-618); Magnesium 4.1 mg/dL (1.6-2.3); Phosphorus 6.5 mg/dL (2.5-4.5); Sodium 132 mmol/L (137-145)
--- NOTE | 2020-12-02 11:37 | WPDCNINT ---
Assessment and Plan Assessment and plan (1) Cardiac arrest: Code(s): I46.9 - Cardiac arrest, cause unspecified Status: Acute Assessment and Plan: Cardiac arrest, patient was found unresponsive pulse on the bedside commode. Could be vasovagal, possible aspiration, patient was unresponsive and pulseless. ACLS protocol was initiated, ROSC after 1 amp of epi, 1 amp of bicarb and 1 amp of dextrose 50. Patient also given magnesium during the code. -will obtain CT scan of the chest/abdomen/pelvis, will also obtain CT scan of the brain -troponin elevated, will obtain 3 hour in 6 hour troponin -EKG showed sinus tachycardia (2) Acute respiratory failure: Code(s): J96.00 - Acute respiratory failure, unspecified whether with hypoxia or hypercapnia Status: Acute Assessment and Plan: Acute respiratory failure post cardiac arrest, intubate on 12/02/2020 -CMV mode of ventilation, low tidal volume strategy, peep of 5 and currently on 100% FiO2, will obtain ABGs -chest x-ray reviewed -will add bronchodilators (3) Ambulatory dysfunction: Code(s): R26.2 - Difficulty in walking, not elsewhere classified Status: Acute Assessment and Plan: Patient presented with ambulatory dysfunction, Generalized weakness which has worsening over the last 2 weeks -will have Neurology evaluate the patient (4) Person under investigation for COVID-19: Code(s): Z20.822 - Contact with and (suspected) exposure to COVID-19 Status: Acute Assessment and Plan: SARS-CoV-2 PCR was being performed for placement to a facility, PCR is pending -continue droplet, airborne, contact isolation/precautions (5) Generalized weakness: Code(s): R53.1 - Weakness Status: Acute Assessment and Plan: As above (6) DVT prophylaxis: Code(s): Z29.9 - Encounter for prophylactic measures, unspecified Status: Acute Assessment and Plan: SCDs for now, if CT brain is negative will start patient on Lovenox Additional Plan Amor Frank has discussed with the father with requested patient to be full code for now. I shall call the father once a have more lab results and CT scan results Code status: Full code Critical care time spent: 51 minutes Due to a high probability of clinically significant, life threatening deterioration, the patient required my highest level of preparedness to intervene emergently and I personally spent this critical care time directly and personally managing the patient. This critical care time included obtaining a history; examining the patient; pulse oximetry; ordering and review of studies; arranging urgent treatment with development of a management plan; evaluation of patient's response to treatment; frequent reassessment; and discussions with other providers. It was exclusive of separately billable procedures and treating other patients and teaching time. Please see Assessment and Plan section and the rest of the note for further information on patient assessment and treatment [employer] Consult Note Consult date: 12/02/20 Time Seen: 10:53 Reason for consult: Cardiac arrest, respiratory failure, lactic acidosis HPI: Luis A Crow is a 54 year old male leg edema, obesity, multiple episodes of cellulitis and lower extremity with chronic lower extremity edema. Patient is also homeless but according to records he lives with his 80-year-old father. Patient presented the ED on 12/01/2020 with complains of generalized weakness and lower extremity swelling. In the ER he stated that he had become progressively weak in the last couple of weeks. Unable to get himself up. Patient was found to be covered in his own feces. SARS-CoV-2 PCR is pending. On 12/02/2020, lynn burkett was called on the medical floor, upon arrival to patient's room, CPR was in progress. According the hospitalist physician foundation assistant, patient was talking and awake about 10 minutes prior to the code. Accor
[2020-12-02 11:39] LABS: Alanine Aminotransferase 72 U/L (4-50)
[2020-12-02 11:47] LABS: D Dimer 10.31 ug/mL (<0.48); Troponin I 0.214 ng/mL (0.000-0.034)
--- NOTE | 2020-12-02 12:05 | WPDPROCEDUR ---
Procedures Intubation Intubation Date: 12/02/20 Intubation Time: 11:04 A pre-procedural Time-Out was completed immediately before starting the procedure and confirmed: Patient Identification, Site, Procedure, Patient Position and the Availability of Requisite Equipment: No Sedative: none Laryngoscope: fiber optic video scope Assist device used: fiber optic device ET tube size: 8 Tube secured depth (cm): 25 Tube secured location: lips Tube placement confirmation: visualized tube passing through cords, equal breath sounds bilaterally, no breath sounds over epigastrium and confirmation by capnometry Patient tolerated procedure: well Intubation complications: none
[2020-12-02 12:50] LABS: Alveolar/Arterial O2 Gradient 441.6 mmHg; Base Excess ABG -0.9 mEq/l (+/-2.0); Carboxyhemoglobin 0.3 % THb (0-2.0); Fractional Inspired Oxygen 100 %; HCO3 ABG 25.5 mEq/l (22.0-26.0); Methemoglobin ABG 0.5 %THb (0-1.5); Oxygen Content ABG 20.2 %vol (16.0-22.0); Oxygen Saturation ABG 99.4 % (95.0-100.0); Oxyhemoglobin 97.9 % THb (90.0-100.0); PCO2 ABG 48.9 mmHg (35.0-45.0); PO2 ABG 222.5 mmHg (80.0-100.0); PO2 FiO2 Ratio Arterial Blood 2.22 %; Reduced Hemoglobin 1.3 %THb (0-5.0); Total Hemoglobin 14.3 g/dL (12.0-18.0); pH ABG 7.335 (7.350-7.450)
[2020-12-02 12:51] LABS: Device VENTILATOR; Modified Allen's Test Pass; Site Drawn RIGHT RADIAL
[2020-12-02 12:52] LABS: Arterial Blood Gas PEEP 5 cmH2O; Arterial Blood Gas Tidal Volume 500 ml; Arterial Blood Gas Vent Mode ASSIST CONTROL; Arterial Blood Gas Ventilator rate 20 /MIN
[2020-12-02] MEDS: IPRATROPIUM BR 0.02% INH SOLN 0.5 MG/2.5 ML VIAL INHALATION (12:54)
--- NOTE | 2020-12-02 13:41 | PM.TDS ---
Transfer Discharge Sum: Prov Provider Date of admission: 12/02/20 12:01 Primary care physician: Paulina Nuñez, PA Admitting clinician: Breana Martino MD Consults: 12/01/20 Care Coordination Consult Routine Comment: Reason for Consult:: Fdc Placement Wound/ET Consult Routine Reason for Consult:: wounds to right buttock 12/02/20 Consult to Physician Routine Comment: Consulting Provider: Jacklyn Broderick Reason for consultation: cardiac arrest Has provider been notified: Yes DS: Admitting Diagnosis Admitting Diagnosis Admitting Diagnosis: Weakness DS: Discharge Diagnosis Discharge Diagnosis (1) Saddle pulmonary embolus: Code(s): I26.92 - Saddle embolus of pulmonary artery without acute cor pulmonale Status: Acute Assessment and Plan: Acute saddle pulmonary embolus noted on CTA which is likely the cause of cardiac arrest. His troponins were elevated and the patient was intubated. Patient was started on Lovenox and tertiary care hospitals were contacted. The patient was accepted by [facility] and was transferred in serious condition. (2) Cardiac arrest: Code(s): I46.9 - Cardiac arrest, cause unspecified Status: Acute Assessment and Plan: Patient had a cardiac arrest and was resuscitated successfully and now has a pulse and is intubated in the ICU -likely due to saddle pulmonary emboli -see above -COVID negative (3) Ambulatory dysfunction: Code(s): R26.2 - Difficulty in walking, not elsewhere classified Status: Acute Assessment and Plan: He has been getting increasingly weak especially after his illness last week as stated above -continue PT and OT -patient would benefit from SNF placement (4) Unable to care for self: Code(s): Z78.9 - Other specified health status Status: Acute Assessment and Plan: Patient lives with his father again. He is not taking care of himself and was very unkempt. -will need SNF placement if possible (5) Person under investigation for COVID-19: Code(s): Z20.822 - Contact with and (suspected) exposure to COVID-19 Status: Acute Assessment and Plan: Patient is not on isolation currently and this was routinely done for placement -he did have a viral illness last week, although no congestion, respiratory issues or fever (6) Sleep-related breathing disorder: Code(s): G47.30 - Sleep apnea, unspecified Status: Acute Assessment and Plan: Will need outpatient sleep study to obtain CPAP (7) Morbid obesity with BMI of 40.0-44.9, adult: Code(s): E66.01 - Morbid (severe) obesity due to excess calories; Z68.41 - Body mass index [BMI]40.0-44.9, adult Status: Acute Assessment and Plan: Patient would benefit from weight loss (8) Generalized weakness: Code(s): R53.1 - Weakness Status: Acute Assessment and Plan: As above Transfer Discharge Sum: Med Medications Active and Home Medications: Home Medications No Home Medications 11/19/20 [History Confirmed 12/01/20] Transfer Discharge Sum: Hosp Hospital Course Hospital course: Luis A Crow is a 54 year old male who presented emergency room for weakness and lower extremity swelling. Vitals in the ER were temperature 97.1? F, pulse 107, respiratory rate 20, blood pressure 133/86, pulse ox 97 on room air. Initial white blood cell count 14.8, hemoglobin 13.8, hematocrit 41.7, platelets 285. Chest x-ray showed mild atelectasis in the left lower lung. Patient was admitted to the hospitalist service and was seen the next day. Initially the patient had no complaints other than weakness. He has been sedentary at and having some diarrhea prior to admission but was overall improving in that area. His main concern was that he needed placement to get stronger. He also mentions that his lower extremities were swallow as well. He had
--- NOTE | 2020-12-02 14:05 | PC.NURSE ---
1115 PATIENT WENT INTO CARDIOPULMONARY ARREST IN ROOM 251. CODE BLUE CALLED. ROSC ACHIEVED. PATIENT INTUBATED AND TAKEN TO ROOM ICU 7.
[2020-12-02 14:17] LABS: Reflex Lactic Acid Yes or No Add Lactic
[2020-12-02 14:59] LABS: Troponin I 0.406 ng/mL (0.000-0.034)
[2020-12-02] MEDS: PERFLUTREN LIPID MICROSPHERES 1.5 ML VIAL DILUTED TO 10 ML TOTAL VOLUME IV PUSH (15:40)
[2020-12-02] MEDS: SODIUM CHLORIDE 0.9% IV 1,000 ML 999 ML IV CONT (15:51)
[2020-12-02] MEDS: SODIUM CHLORIDE 0.9% IV 1,000 ML 75 ML IV CONT (16:47)
[2020-12-02] MEDS: HEPARIN SOD/D5W 100 UNITS/ML 25,000 UNITS/250 ML BAG 15 UNITS IV CONT (16:47)
[2020-12-02] MEDS: HEPARIN SODIUM 5,000 UNITS/ML VIAL 8000 UNITS IV PUSH (16:48)
[2020-12-02 17:28] LABS: SARS-CoV-2 RNA PCR Negative
== END 2020-12-02 17:45 | disposition short-term general hospital (02) | DRG 134 ==
LOC: ANHED 18:50 → ANH3MEDSUR 18:57 → ANH2MED 19:27 → ANHICU 12-02 11:13
PROVIDERS: Emergency Medicine; Internal Medicine; Nurse Practitioner; Admitting Provider Family Medicine; Emergency Provider Emergency Medicine; PCP Physician Assistant; Visit Provider Family Medicine
DX: I26.92 Saddle embolus of pulmonary artery without acute cor pulmonale (principal); J96.00 Acute respiratory failure, unspecified whether with hypoxia or hypercapnia; I46.9 Cardiac arrest, cause unspecified; Z20.822 Contact with and (suspected) exposure to COVID-19; G47.30 Sleep apnea, unspecified; R26.2 Difficulty in walking, not elsewhere classified; R53.1 Weakness; E66.01 Morbid (severe) obesity due to excess calories; Z68.38 Body mass index [BMI] 38.0-38.9, adult; Z28.21 Immunization not carried out because of patient refusal; Z78.9 Other specified health status
CPT/HCPCS: 36415; 36600; 70450; 71046; 71275; 74177; 80053; 81001; 82140; 82375; 82550; 82728; 82805; 83050; 83605; 83615; 83735; 84100; 84443; 84484; 85025; 85380; 86140; 87040; 93005; 93970; 94002; 94640; 96365; 96372; 96375; 97161; 97165; 99285; A9270; C8929; C9803; G0378; G0379; J0171; J1644; J1650; J2250; J3010; J3475; J7030; J7050; Q9957; Q9967; U0003; U0005